=== PATIENT | male | born 1945 | race Caucasian/White ===

== ENCOUNTER 2017-08-04 07:24 | Observation (INO) | payer MEDICARE ==
[2017-08-04] MEDS ORDERED: BABY ASPIRIN 81 MG CHEW PO ONE (07:32)
[2017-08-04] MEDS ORDERED: NITRO-BID 2% UD PACKETS TOP ONE (07:32)
[2017-08-04] MEDS ORDERED: Sodium Chloride 0.9% 1000 ML 1,000 ML IV SCH (07:45)
--- NOTE | 2017-08-04 07:46 | ERPHSYRPT ---
- History of Present Illness Time Seen by Provider: 08/04/17 07:31 Historian: patient, family () Physician History: CC: chest heaviness Hx: 71 y/o patient of Dr Oconnor who lives most of the year in [place], planning to return to [place] soon. He has cardiology in [place] due to Afib and takes flecainide and ASA. He felt tired yesterday. Some nasal congestion. Could not sleep well last night. [place] chest heaviness and shortness of breath this AM and then felt like something sitting on his chest so came to ER. No hx of CAD in past. [place] a sharp pain in right upper leg this AM. No fever or chills. Not much cough but felt congested. Took 3 baby ASA this AM. No recent viagra or sexual medications. Does not take NTG routinely. Timing/Duration: today, yesterday Severity of Pain-Max: moderate Severity of Pain-Current: mild Aspirin Treatment Today: 81 mg x 3, provided at home Allergies/Adverse Reactions: No Known Drug Allergies Allergy (Unverified 08/04/17 07:47) Home Medications: Aspirin [[place] Aspirin] 81 mg PO DAILY 08/04/17 [History] Bisacodyl [Dulcolax] 5 mg PO DAILY 08/04/17 [History] Calcium Carbonate/Vitamin D3 [Calcium 600 + Vit D 400 Tablet] 1 each PO BID [History] Cyanocobalamin (Vitamin B-12) [Vitamin B12] 2,500 mcg PO DAILY 08/04/17 [History ] Flecainide Acetate 50 mg PO BID 08/04/17 [History] Naproxen 500 mg PO HS 08/04/17 [History] Omeprazole 20 MG [Prilosec 20 mg] 40 mg PO DAILY 08/04/17 [History] Potassium Chloride 20 Meq [Klor-Con 20 MEQ] 20 meq PO DAILY 08/04/17 [History] Vitamin B Complex [Super B Complex] 1 each PO DAILY 08/04/17 [History] - Review of Systems Constitutional: Malaise, Weakness, No Fever, No Chills Eyes: No Symptoms Ears, Nose, & Throat: No Symptoms Respiratory: Cough (mild), Dyspnea Cardiac: Chest Pain (heaviness) Abdominal/Gastrointestinal: Nausea, No Abdominal Pain, No Vomiting, No Diarrhea Genitourinary Symptoms: Incontinence (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 HTN - Social History Patient Lives Alone: No (here with ) - Nursing Vital Signs Nursing Vital Signs: Initial Vital Signs Temperature 97.8 F 08/04/17 07:25 Pulse Rate 98 H 08/04/17 07:25 Respiratory Rate 18 08/04/17 07:25 Blood Pressure 135/78 08/04/17 07:25 O2 Sat by Pulse Oximetry 96 08/04/17 07:25 Pain Scale Pain Intensity 2 - Physical Exam General Appearance: alert Eye Exam: PERRL/EOMI Ears, Nose, Throat Exam: normal ENT inspection, moist mucous membranes Neck Exam: normal inspection, non-tender, supple Respiratory Exam: normal breath sounds, lungs clear Cardiovascular Exam: regular rate/rhythm, No murmur Gastrointestinal/Abdomen Exam: soft, No tenderness, No distention Back Exam: normal inspection Extremity Exam: normal inspection Neurologic Exam: alert, oriented x 3, cooperative, sensation nml, No motor deficits Skin Exam: warm, dry, No rash Comments: 08/04/17 07:47 2+ femoral, radial, DP, PT pulses bilateral with no pulse deficit. Skin mildly clammy. - Course Nursing assessment & vital signs reviewed: Yes EKG Interpreted by Me: RATE (91), Sinus Rhythm, Left [place] Deviation, NORMAL INTERVALS (QTc 451), Other (Large R wave V2 on, nonspecific ST- T changes, LAFB) - Radiology Exams cxr X-ray Interpretation: Reviewed by me (CM, mild congestion, no consolidation), Nml Mediastinum Ordered Tests: Active Orders 24 hr Category Date Time Status Environmental Health And Safety Intern STAT Care 08/04/17 07:32 Active EKG-ER Only STAT Care 08/04/17 07:32 Active IV Insertion STAT Care 08/04/17 07:32 Active CHEST 1 VIEW (PORTABLE) Stat Exams 08/04/17 07:32 Taken CBC W DIFF Stat Lab 08/04/17 07:30 Completed CMP Stat Lab 08/04/17 07:30 Completed Manual Differential NC Stat Lab 08/04/17 07:30 Completed NT PRO BNP Stat Lab 08/04/17 07:30 Completed PROTIME WITH INR Stat Lab 08/04/17 07:30 Completed PTT Stat Lab 08/04/17 07:30 Completed TROPONIN Q3H Lab 08/04/17 07:30 Completed TROPONIN Q3H Lab 08/04/17 10:45 Ordered TROPONIN Q3H Lab 08/04/17 13:45 Ordered TROPONIN Q3H Lab 08/04/17 16:45 Ordered TROPONIN Q3H Lab 08/04/17 19:45 Ordered Respiratory Nebulizer STAT RT 08/04/17 08:40 Active Medication Summary Generic Name Dose Route Start Last Admin Trade Name Freq PRN Reason Stop Dose Admin Sodium Chloride 1,000 mls @ 100 mls/hr 08/04/17 07:45 08/04/17 07:59 Sodium Chloride 0.9% 1000 Ml IV 09/03/17 07:44 100 mls/hr .Q10H RENEE Administration Discontinued Medications Generic Name Dose Route Start Last Admin Trade Name Freq PRN Reason Stop Dose Admin Acetaminophen 650 mg 08/04/17 08:33 08/04/17 08:35 Tylenol 325 Mg PO 08/04/17 08:34 650 mg STAT ONE Administration Acetaminophen Confirm 08/04/17 08:34 Tylenol 325 Mg Administered 08/04/17 08:35 Dose 650 mg .ROUTE .STK-MED ONE Albuterol Sulfate 2.5 mg 08/04/17 08:40 Proventil 2.5 Mg/3 Ml Neb IH 08/04/17 08:41 STAT ONE Aspirin 81 mg 08/04/17 07:32 08/04/17 08:03 Baby Aspirin 81 Mg Chew PO 08/04/17 07:33 81 mg STAT ONE Administration Aspirin Confirm 08/04/17 07:57 Baby Aspirin 81 Mg Chew Administered 08/04/17 07:58 Dose 81 mg .ROUTE .STK-MED ONE Nitroglycerin 1 gm 08/04/17 07:32 08/04/17 07:59 Nitro-Bid 2% Ud Packets TOP 08/04/17 07:33 1 gm STAT ONE Administration Nitroglycerin Confirm 08/04/17 07:58 Nitro-Bid 2% Ud Packets Administered 08/04/17 07:59 Dose 1 gm .ROUTE .STK-MED ONE Lab/Rad Data: Laboratory Result Diagrams 08/04/17 07:30 08/04/17 07:30 Laboratory Results 08/04/17 08/04/17 08/04/17 Range/Units 07:30 07:30 07:30 WBC (4.0-10.5) K/mm3 RBC (4.1-5.6) M/mm3 Hgb (12.5-18.0) gm/dl Hct (42-50) % MCV (78-100) fl MCH (26-32) pg MCHC (32-36) g/dl RDW (11.5-14.0) % Plt Count (150-450) K/mm3 MPV (6-9.5) fl Segmented Neutrophils (36.-66.) % Band Neutrophils (0.0-2.0) % Lymphocytes (Manual) (24-44) % Monocytes (Manual) (0.0-12.0) % Eosinophils (Manual) (0.00-3.0) % Differential Comment Platelet Estimate (NORMAL) INR 1.04 (0.8-3.0) APTT 33.8 (24.1-36.1) SECONDS Sodium 142 (136-145) mEq/L Potassium 3.9 (3.5-5.1) mEq/L Chloride 108 H (98-107) mEq/L Carbon Dioxide 22.0 (21-32) mEq/L Anion Gap 15.8 H (5-15) MEQ/L BUN 22 H (9-20) mg/dL Creatinine 1.04 (0.55-1.30) mg/dl Estimated GFR > 60 ML/MIN Glucose 140 H (70-110) MG/DL Calcium 8.6 (8.5-10.1) mg/dL Total Bilirubin 1.00 (0.2-1.0) mg/dL AST 28 (15-37) U/L ALT 58 (12-78) U/L Alkaline Phosphatase 90 (46-116) U/L Troponin I < 0.017 (0.000-0.056) ng/ml NT-Pro-B Natriuret Pep 121 (0-125) pg/ml Serum Total Protein 6.8 (6.4-8.2) gm/dL Albumin 3.8 (3.4-5.0) g/dL 08/04/17 Range/Units 07:30 WBC 7.9 (4.0-10.5) K/mm3 RBC 5.86 H (4.1-5.6) M/mm3 Hgb 18.2 H (12.5-18.0) gm/dl Hct 51.8 H (42-50) % MCV 88.4 (78-100) fl MCH 31.0 (26-32) pg MCHC 35.1 (32-36) g/dl RDW 14.1 H (11.5-14.0) % Plt Count 201 (150-450) K/mm3 MPV 11.7 H (6-9.5) fl Segmented Neutrophils 90 H (36.-66.) % Band Neutrophils 4 H (0.0-2.0) % Lymphocytes (Manual) 4 L (24-44) % Monocytes (Manual) 1 (0.0-12.0) % Eosinophils (Manual) 1 (0.00-3.0) % Differential Comment NORMAL Platelet Estimate NORMAL (NORMAL) INR (0.8-3.0) APTT (24.1-36.1) SECONDS Sodium (136-145) mEq/L Potassium (3.5-5.1) mEq/L Chloride (98-107) mEq/L Carbon Dioxide (21-32) mEq/L Anion Gap (5-15) MEQ/L BUN (9-20) mg/dL Creatinine (0.55-1.30) mg/dl Estimated GFR ML/MIN Glucose (70-110) MG/DL Calcium (8.5-10.1) mg/dL Total Bilirubin (0.2-1.0) mg/dL AST (15-37) U/L ALT (12-78) U/L Alkaline Phosphatase (46-116) U/L Troponin I (0.000-0.056) ng/ml NT-Pro-B Natriuret Pep (0-125) pg/ml Serum Total Protein (6.4-8.2) gm/dL Albumin (3.4-5.0) g/dL - Progress Progress Note: 08/04/17 08:43 Chest heaviness improved with NTG paste. PE or TAD not suspected. He has normal pulses. Advised chest pain observation to rule out NE. Called Dr Mata who will place in Tele. Discussed with .: Esperanza Will see patient in: hospital (observation) Counseled pt/family regarding: lab results, diagnosis, need for follow-up, rad results - Departure Time of Disposition: 08:43 Departure Disposition: Observation (Tele) Clinical Impression: Chest pain, rule out acute myocardial infarction, History of atrial fibrillation Condition: Fair Critical Care Time: No Referrals: TAWANA OCONNOR MD [Primary Care Provider] -
[2017-08-04 07:53] LABS: Mean Cell Volume 88.4 fl (78-100); Mean Platelet Volume 11.7 fl (6-9.5); Platelet Count 201 K/mm3 (150-450); Red Blood Count 5.86 M/mm3 (4.1-5.6); Red Cell Distribution Width 14.1 % (11.5-14.0); White Blood Count 7.9 K/mm3 (4.0-10.5)
[2017-08-04] MEDS ORDERED: BABY ASPIRIN 81 MG CHEW ONE (07:57)
[2017-08-04] MEDS ORDERED: NITRO-BID 2% UD PACKETS ONE (07:58)
[2017-08-04 08:07] LABS: INR 1.04 (0.8-3.0); PROTIME 11.6 SECONDS (8.83-12.87)
[2017-08-04 08:09] LABS: PTT 33.8 SECONDS (24.1-36.1)
[2017-08-04 08:16] LABS: BAND 4 % (0.0-2.0); Eosinophil 1 % (0.00-3.0); Total Cells Counted 100
[2017-08-04 08:19] LABS: ALBUMIN 3.8 g/dL (3.4-5.0); ALKALINE PHOSPHATASE 90 U/L (46-116); ANION GAP 15.8 MEQ/L (5-15); BLOOD UREA NITROGEN 22 mg/dL (9-20); CHLORIDE 108 mEq/L (98-107); Glucose 140 MG/DL (70-110); Potassium 3.9 mEq/L (3.5-5.1); SGOT/AST 28 U/L (15-37); SGPT/ALT 58 U/L (12-78); SODIUM 142 mEq/L (136-145); Total Protein 6.8 gm/dL (6.4-8.2)
[2017-08-04 08:21] LABS: Platelet Estimate NORMAL (NORMAL)
[2017-08-04] MEDS ORDERED: TYLENOL 325 MG PO ONE (08:33)
[2017-08-04] MEDS ORDERED: TYLENOL 325 MG ONE (08:34)
[2017-08-04] MEDS ORDERED: PROVENTIL 2.5 MG/3 ML NEB IH ONE ×2 (08:40→08:48)
[2017-08-04] MEDS ORDERED: MILK OF MAGNESIA 30 ML PO PRN (09:25)
[2017-08-04] MEDS ORDERED: Sodium Chloride 0.9% 500 ML 500 ML IV SCH (09:25)
[2017-08-04] MEDS ORDERED: MAALOX ES 30 ML UNIT DOSE PO PRN (09:25)
[2017-08-04] MEDS ORDERED: Senokot-S Tablet PO PRN (09:25)
[2017-08-04] MEDS ORDERED: Zofran 4 MG/2 ML VIAL IV PRN (09:25)
--- NOTE | 2017-08-04 10:12 | PCM.SSS ---
History of Present Illness - Chief Complaint Chief Complaint: Shortness of Breath History of Present Illness: is a 71 year old male [facility] complaining of 5/10 chest pressure, some radiation to R shoulder, with SOB, diaphoresis, and tachycardia to 100. His BP was 150s systolic (usually he runs 120s systolic). His EKG was not acute and troponin neg, but he was admitted for CP r/o MO. His pain resolved after an hour and with nitro paste. He had eaten catfish last night and started feeling nauseated an hour or so later. He did not sleep well, had indigestion and nasal congestion. He felt he couldn't breathe well even with his CPAP on. Currently he denies chest pain. He has a long smoking hx; quit over 10 yrs ago but had a 35+ pk year hx. He has hx afib and is on flecanide. No hx CAD. MGF had MO, otherwise no FHx CAD. - Review of Systems Respiratory: Short Of Breath Cardiac: Chest Pain, Edema (had few days of LLE edema), Palpitations Abdominal/Gastrointestinal: Nausea, Constipation (chronic) Musculoskeletal: Myalgias (and loss of muscle mass RLE, has been seeing Dr. Oconnor with extensive workup), Other (last night had a very brief episode of pain medial proximal R thigh, "like a mouse ran down my vein and then out.") Psychological: No Depression, No Suicidal Ideations Medications & Allergies Home Medications: Home Medication List Aspirin [[place] Aspirin] 81 mg PO DAILY 08/04/17 [History Confirmed 08/04/17 ] Bisacodyl [Dulcolax] 5 mg PO DAILY 08/04/17 [History Confirmed 08/04/17] Calcium Carbonate/Vitamin D3 [Calcium 600 + Vit D 400 Tablet] 1 each PO BID [History Confirmed 08/04/17] Cyanocobalamin (Vitamin B-12) [Vitamin B12] 2,500 mcg PO DAILY 08/04/17 [ History Confirmed 08/04/17] Flecainide Acetate 100 mg PO BID 08/04/17 [History Confirmed 08/04/17] Naproxen 500 mg PO DAILY 08/04/17 [History Confirmed 08/04/17] Omeprazole 20 MG [Prilosec 20 mg] 40 mg PO DAILY 08/04/17 [History Confirmed ] Potassium Chloride 10 Meq Tab* [Klor Con 10 MEQ] 10 meq PO DAILY 08/04/17 [ History Confirmed 08/04/17] Simvastatin 40 mg [Zocor 40 mg] 20 mg PO HS 08/04/17 [History Confirmed 08/04/17 ] Vitamin B Complex [Super B Complex] 1 each PO DAILY 08/04/17 [History Confirmed 08/04/17] Allergies/Adverse Reactions: Allergies Allergy/AdvReac Type Severity Reaction Status Date / Time No Known Drug Allergies Allergy Verified 08/04/17 09:46 - Past Medical History Past Medical History: Yes Cardiac History: Arrhythmia (Afib) Respiratory History: Sleep Apnea Male Reproductive Disorders: Prostate Cancer Comment: Prostate CA. HTN - Past Surgical History Past Surgical History: Yes GI Surgical History: Appendectomy, Hernia Repair Genitourinary Surgical Hx: Other Male Surgical History: Prostate Surgery Other Surgical History: bladder sling - Social History Smoking Status: Former smoker Exposure to second hand smoke: No Alcohol: Daily Drug Use: none - Physical Exam Vital Signs: Vital Signs - 24 hr Temp Pulse Pulse Resp BP Pulse Ox 08/04/17 08:55 104 H 18 94 L 08/04/17 08:37 105 H 18 111/64 94 L 08/04/17 07:28 98 H 08/04/17 07:25 97.8 F 98 H 18 135/78 96 General Appearance: no apparent distress, alert Neurologic Exam: oriented x 3, cooperative Eye Exam: eyes nml inspection Ears, Nose, Throat Exam: moist mucous membranes Neck Exam: normal inspection, supple, full range of motion Respiratory Exam: normal breath sounds, lungs clear, No crackles/rales, No rhonchi, No wheezing Cardiovascular Exam: regular rate/rhythm, normal heart sounds, No murmur Gastrointestinal/Abdomen Exam: soft, normal bowel sounds, No tenderness, No distention, No mass, No guarding, No rebound Back Exam: normal inspection Extremity Exam: No pedal edema, No swelling Skin Exam: normal color, warm, dry Assessment/Plan (1) Chest pain, rule out acute myocardial infarction Current Visit: Yes Status: Acute Assessment & Plan: If troponins negative today and vital signs are stable, he may be able to be discharged this evening. He does appear to have a LBBB; will need to f/u with PCP and/or cardiology in [place]. Code(s): R07.9 - CHEST PAIN, UNSPECIFIED (2) History of atrial fibrillation Current Visit: Yes Status: Chronic Assessment & Plan: currently appears to be in sinus rhythm. Code(s): Z86.79 - PERSONAL HISTORY OF OTHER DISEASES OF THE CIRCULATORY SYSTEM Hospital Summary - Vitals & Intake/Output Vital Signs: Vital Signs Temperature 97.8 F 08/04/17 07:25 Pulse Rate 104 H 08/04/17 08:55 Respiratory Rate 18 08/04/17 08:55 Blood Pressure 111/64 08/04/17 08:37 O2 Sat by Pulse Oximetry 94 L 08/04/17 08:55 - Lab Result Diagrams: 08/04/17 07:30 08/04/17 07:30 - Discharge Disposition: Home, Self-Care Condition: Fair Prescriptions: No Action Naproxen 500 mg PO DAILY Bisacodyl [Dulcolax] 5 mg PO DAILY Calcium Carbonate/Vitamin D3 [Calcium 600 + Vit D 400 Tablet] 1 each PO BID Vitamin B Complex [Super B Complex] 1 each PO DAILY Omeprazole 20 MG [Prilosec 20 mg] 40 mg PO DAILY Cyanocobalamin (Vitamin B-12) [Vitamin B12] 2,500 mcg PO DAILY Aspirin [[place] Aspirin] 81 mg PO DAILY Simvastatin 40 mg [Zocor 40 mg] 20 mg PO HS Flecainide Acetate 100 mg PO BID Potassium Chloride 10 Meq Tab* [Klor Con 10 MEQ] 10 meq PO DAILY Follow up with: TAWANA OCONNOR MD [Primary Care Provider] -
[2017-08-04] MEDS ORDERED: NAPROXEN 500 MG PO PRN (11:45)
[2017-08-04] MEDS ORDERED: Naprosyn 500 MG PO PRN (11:50)
[2017-08-04] MEDS: FLECAINIDE ACETATE PO SCH ×2 (12:03→21:00)
[2017-08-04] MEDS: Pepcid 20 MG PO SCH ×2 (12:13→20:59)
[2017-08-04] MEDS: Protonix 40MG Tablet PO SCH (12:13)
[2017-08-04] MEDS: DULCOLAX 5 MG PO SCH (12:14)
[2017-08-04] MEDS: NITRO-BID 2% UD PACKETS TOP SCH ×2 (13:37→21:00)
[2017-08-04] MEDS: TYLENOL 325 MG PO PRN (16:33)
--- NOTE | 2017-08-04 20:18 | XRAY ---
Indication: Chest pain. Comparison: None Portable chest clear with incidental calcified granulomas. Heart is not enlarged for AP portable technique. Bony thorax intact with mild degenerative changes. Impression: Nonacute chest. Evidence for old granulomatous disease. Comment: Preliminary interpretation was made by C. No discrepancy.
[2017-08-04] MEDS ORDERED: ZOCOR 20MG PO SCH (22:00)
[2017-08-04] MEDS ORDERED: NON-FORMULARY ITEM (Simvastatin 40 Mg [Zocor 40 Mg] 20 MG) PO SCH (22:00)
[2017-08-05] MEDS: NITRO-BID 2% UD PACKETS TOP SCH (05:59)
[2017-08-05] MEDS: TYLENOL 325 MG PO PRN (06:04)
[2017-08-05] MEDS: Protonix 40MG Tablet PO SCH (08:53)
[2017-08-05] MEDS: DULCOLAX 5 MG PO SCH (08:54)
[2017-08-05] MEDS: FLECAINIDE ACETATE PO SCH (08:54)
[2017-08-05] MEDS: Pepcid 20 MG PO SCH (08:54)
[2017-08-05] MEDS ORDERED: Ecotrin 325 MG PO SCH (10:00)
[2017-08-05] MEDS ORDERED: NON-FORMULARY ITEM (Omeprazole 20 Mg [Prilosec 20 Mg] 40 MG) PO SCH (10:00)
[2017-08-05] MEDS ORDERED: ECOTRIN 81 MG PO SCH (10:00)
[2017-08-05] MEDS ORDERED: Klor Con 10 MEQ PO SCH (10:00)
--- NOTE | 2017-08-05 11:58 | PCM.DS ---
Discharge Summary Date of Admission: 08/04/17 09:12 Admitting Physician: TAWANA OCONNOR Primary Care Provider: TAWANA OCONNOR Allergies Allergies No Known Drug Allergies Allergy (Verified 08/04/17 09:46) Hospital Summary - Hospital Course Hospital Course: Pt admitted through ER with chest pressure and SOB. He ruled out for MT. Last night he started having diarrhea and has had several episodes this morning. C/ o some abdominal bloating, not having any chest pain. Will be discharged to home. Will f/u wiht his manager managed backup services when he gets home. - Vitals & Intake/Output Vital Signs: Vital Signs Temperature 98.2 F 08/05/17 08:00 Pulse Rate 67 08/05/17 08:00 Respiratory Rate 12 08/05/17 08:00 Blood Pressure 110/68 08/05/17 08:00 O2 Sat by Pulse Oximetry 94 L 08/05/17 08:00 Intake & Output: Intake & Output 08/02/17 08/03/17 08/04/17 08/05/17 11:59 11:59 11:59 11:59 Intake Total 1217 Balance 1217 Weight 94.6 kg - Lab Result Diagrams: 08/04/17 07:30 08/04/17 07:30 Lab Results-Last 24 Hrs: Lab Results-Last 24 Hours 08/04/17 08/04/17 08/04/17 Range/Units 13:40 16:50 19:40 Troponin I < 0.017 < 0.017 < 0.017 (0.000-0.056) ng/ml Triglycerides (30-200) mg/dL Cholesterol (100-200) mg/dL LDL Cholesterol (5-99) mg/dL HDL Cholesterol (35-60) mg/dL Heart Disease Risk Ratio 08/05/17 Range/Units 05:10 Troponin I (0.000-0.056) ng/ml Triglycerides 95 (30-200) mg/dL Cholesterol 101 (100-200) mg/dL LDL Cholesterol 62 (5-99) mg/dL HDL Cholesterol 33 L (35-60) mg/dL Heart Disease Risk Ratio 3.1 - Procedures and Test Procedures and Tests throughout Hospitalization: Therapy Orders & Screens 08/04/17 15:27 EKG ROUTINE Comment: Diagnosis: Shortness of Breath 08/05/17 05:00 EKG ONCE Comment: Diagnosis: Shortness of Breath 08/06/17 05:00 EKG ONCE Comment: Diagnosis: Shortness of Breath 08/07/17 05:00 EKG ONCE Comment: Diagnosis: Shortness of Breath Discharge Exam General Appearance: no apparent distress, alert Neurologic Exam: oriented x 3, cooperative Skin Exam: normal color, warm, dry Respiratory Exam: normal breath sounds, lungs clear, No crackles/rales, No rhonchi, No wheezing Cardiovascular Exam: regular rate/rhythm, normal heart sounds, No murmur Gastrointestinal/Abdomen Exam: soft, normal bowel sounds, distention (mildly), No tenderness, No mass, No guarding, No rebound Extremity Exam: No pedal edema, No swelling Final Diagnosis/Problem List - Final Discharge Diagnosis/Problem (1) Chest pain, rule out acute myocardial infarction Current Visit: Yes Status: Acute Assessment & Plan: MT ruled out. He did have some EKG changes suggesting LBBB, unsure if these were pre-existing. His HDL was low, otherwise lipid panel was good. He is to f/ u with manager managed backup services in [place] when he returns home (has appt scheduled next month, but I instructed him to call as soon as he reached home and get a sooner appointment). (2) Gastroenteritis Current Visit: Yes Status: Acute Assessment & Plan: likely, with abd pain followed by diarrhea. If diarrhea continues he will call Dr. Oconnor for an order for C. diff testing. (3) History of atrial fibrillation Current Visit: Yes Status: Chronic Assessment & Plan: in sinus rhythm here - Discharge Disposition: Home, Self-Care Condition: Fair Prescriptions: No Action Naproxen 500 mg PO DAILY Bisacodyl [Dulcolax] 5 mg PO DAILY Calcium Carbonate/Vitamin D3 [Calcium 600 + Vit D 400 Tablet] 1 each PO BID Vitamin B Complex [Super B Complex] 1 each PO DAILY Omeprazole 20 MG [Prilosec 20 mg] 40 mg PO DAILY Cyanocobalamin (Vitamin B-12) [Vitamin B12] 2,500 mcg PO DAILY Aspirin [[place] Aspirin] 81 mg PO DAILY Simvastatin 40 mg [Zocor 40 mg] 20 mg PO HS Flecainide Acetate 100 mg PO BID Potassium Chloride 10 Meq Tab* [Klor Con 10 MEQ] 10 meq PO DAILY Instructions: Atypical Chest Pain Follow up with: TAWANA OCONNOR MD [Primary Care Provider] - Forms: Discharge Instructions
[2017-08-05 12:18] VITALS: BP 140/73; PULSE 64; O2SAT 96
== END 2017-08-05 12:10 | disposition home or self-care (01) ==
LOC: ED 07:24 → ICU 09:12
PROVIDERS: ADMIT Family Medicine; ATTEND Family Medicine
DX: R07.89 Other chest pain (principal); K52.9 Noninfective gastroenteritis and colitis, unspecified; Z86.79 Personal history of other diseases of the circulatory system; G47.30 Sleep apnea, unspecified; I10 Essential (primary) hypertension; Z79.899 Other long term (current) drug therapy; Z87.891 Personal history of nicotine dependence; Z85.46 Personal history of malignant neoplasm of prostate
CPT/HCPCS: 36000; 36415; 71010; 80053; 80061; 83721; 83880; 84484; 85025; 85610; 85730; 93005; 93041; 94640; 96360; 99285; G0378; J2405; A9270-GY

== ENCOUNTER 2022-06-18 14:44 | Emergency (ER) | payer MEDICARE ==
[2022-06-18 15:05] VITALS: O2SAT 96
[2022-06-18 15:29] LABS: Appearance CLOUDY (CLEAR); Bilirubin NEGATIVE (NEGATIVE); Dipstick done @ ? MAIN LAB; Glucose NEGATIVE (NEGATIVE); Ketones NEGATIVE (NEGATIVE); Nitrite POSITIVE (NEGATIVE); Ph 8.5 (5-6); Protein,Urine Dip 100 (Negative); RBC LARGE Ery/ul (0-5); Specific Gravity 1.015 (1.005-1.025); Urobilinogen 0.2 mg/dL (0-1)
--- NOTE | 2022-06-18 15:31 | ERPHSYRPT ---
- History of Present Illness Time Seen by Provider: 06/18/22 14:48 Source: patient Exam Limitations: no limitations Patient Subjective Stated Complaint: C/O inability to urinate. Patient was last able to void fully and normally around noon yesterday. 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 Triage Nursing Assessment: Patient ambulated back to ED without difficulties. He is alert and oriented. No SOB noted. Patient is warm to touch. MD present to examine scrotum where pump for artificial spincter is present. Physician History: 76-year-old male with history of prostate cancer status post resection with loss of's sphincter and incontinence for which he has Superfeedr 800 urinary control system implanted at [place] presented in the ER with inability to urinate. Patient reports usually he is able to operate system very well and is able to go but since yesterday having slow dribbling and having some pain in the suprapubic are a because of urinary retention. He is afraid of drinking water. Does report having similar symptoms 1 time before when system was deactivated and Syed catheter was placed. Timing/Duration: yesterday, gradual onset, worse Severity: moderate Associated Symptoms: abdominal pain Allergies/Adverse Reactions: No Known Drug Allergies Allergy (Verified 06/18/22 14:50) Home Medications: Aspirin [[place] Aspirin EC] 81 mg PO DAILY 08/04/17 [History] Bisacodyl [Dulcolax] 5 mg PO DAILY 08/04/17 [History] Calcium Carbonate/Vitamin D3 [Calcium 600-Vit D3 400 Tablet] 1 each PO BID 08/04/17 [History] Cyanocobalamin (Vitamin B-12) [Vitamin B12] 2,500 mcg PO DAILY 08/04/17 [History] Flecainide Acetate 100 mg PO BID 08/04/17 [History] Naproxen 500 mg PO DAILY 08/04/17 [History] Omeprazole 20 MG [Prilosec 20 mg] 40 mg PO DAILY 08/04/17 [History] Potassium Chloride Tab* [Klor Con] 10 meq PO DAILY 08/04/17 [History] Simvastatin 40 mg [Zocor 40 mg] 20 mg PO HS 08/04/17 [History] Vitamin B Complex [Super B Complex] 1 each PO DAILY 08/04/17 [History] Hx Tetanus, Diphtheria Vaccination/Date Given: Yes Hx Influenza Vaccination/Date Given: Yes Hx Pneumococcal Vaccination/Date Given: Yes Immunizations Up to Date: Yes Travel Risk - International Travel Have you traveled outside of the country in past 3 weeks: No - Coronavirus Screening Are you exhibiting any of the following symptoms?: No Close contact with a COVID-19 positive Pt in past 14-21 Days: No - Vaccine Status Have you recieved a Covid-19 vaccination: Yes Circulating Process Inspector: Moderna - Vaccination Dates Date of 2cond Vaccination (if applicable): 2020 - Review of Systems Constitutional: No Symptoms Respiratory: No Symptoms Cardiac: No Symptoms Abdominal/Gastrointestinal: Abdominal Pain Genitourinary Symptoms: Urinary Retention Musculoskeletal: No Symptoms Skin: No Symptoms Neurological: No Symptoms Psychological: No Symptoms Endocrine: No Symptoms - Past Medical History Pertinent Past Medical History: Yes Neurological History: No Pertinent History ENT History: No Pertinent History Cardiac History: Arrhythmia, Hypertension Respiratory History: Sleep Apnea Endocrine Medical History: No Pertinent History Musculoskeletal History: Arthritis GI Medical History: GERD, Hemorrhoids Psycho-Social History: No Pertinent History Male Reproductive Disorders: Prostate Cancer Other Medical History: CDIFF - Past Surgical History Past Surgical History: Yes Neuro Surgical History: No Pertinent History Cardiac: No Pertinent History Respiratory: No Pertinent History Gastrointestinal: Appendectomy, Hernia Repair Genitourinary: Other Musculoskeletal: No Pertinent History Male Surgical History: Prostate Surgery, Other Other Surgical History: bladder sling, artificial spincter in scrotum, biopsy on right leg due to shrinking lef muscle. - Social History Smoking Status: Former smoker How long have you smoked: 35 years Exposure to second hand smoke: No Drug Use: none Patient Lives Alone: No - Nursing Vital Signs Nursing Vital Signs: Initial Vital Signs Temperature 99 F 06/18/22 14:51 Pulse Rate 119 H 06/18/22 14:51 Respiratory Rate 22 06/18/22 14:51 Blood Pressure 156/97 06/18/22 14:51 O2 Sat by Pulse Oximetry 96 06/18/22 14:51 Pain Scale Pain Intensity 0 - Physical Exam General Appearance: no apparent distress, alert Neck Exam: normal inspection, full range of motion Respiratory Exam: normal breath sounds, lungs clear Cardiovascular Exam: normal heart sounds, tachycardia Gastrointestinal/Abdomen Exam: soft, normal bowel sounds, tenderness (Suprapubic tenderness) Male Genitalia Exam: normal genitalia, other (Implant in scrotum), No testicular mass Back Exam: normal inspection, normal range of motion, No CVA tenderness Extremity Exam: normal inspection Neurologic Exam: alert, oriented x 3, cooperative, information services assistant II-XII nml as tested Skin Exam: normal color SpO2 Interpretation: normal SpO2: 96 O2 Delivery: Room Air Ordered Tests: Active Orders 24 hr Category Date Time Status CULTURE,URINE Stat Lab 06/18/22 15:18 Received UA W/RFX CULTURE Stat Lab 06/18/22 15:18 Completed Medication Summary Discontinued Medications Generic Name Dose Route Start Last Admin Trade Name Eddy PRN Reason Stop Dose Admin Ceftriaxone Sodium 1,000 mg 06/18/22 16:14 06/18/22 16:35 Ceftriaxone Sodium 1000 Mg Inj Vial IM 06/18/22 16:15 1,000 mg STAT ONE Administration Ceftriaxone Sodium Confirm 06/18/22 16:33 Ceftriaxone Sodium 1000 Mg Inj Vial Administered 06/18/22 16:34 Dose 1,000 mg .ROUTE .STK-MED ONE Lidocaine HCl Confirm 06/18/22 16:33 Lidocaine Hcl 1% 20 Ml Mdv 20 Ml Ml Administered 06/18/22 16:34 Dose 3 ml .ROUTE .STK-MED ONE Lab/Rad Data: Laboratory Results 06/18/22 Range/Units 15:18 Urinalys Dipstick Clnc MAIN LAB Urine Color DARK YELLOW (YELLOW) Urine Appearance CLOUDY (CLEAR) Urine pH 8.5 (5-6) Ur Specific [place] 1.015 (1.005-1.025) POC Urine Protein Conf 100 (Negative) Urine Ketones NEGATIVE (NEGATIVE) Urine Nitrite POSITIVE (NEGATIVE) Urine Bilirubin NEGATIVE (NEGATIVE) Urine Urobilinogen 0.2 (0-1) mg/dL Urine Leukocytes LARGE (NEGATIVE) Urine WBC (Auto) >100 (0-5) /HPF Urine RBC (Auto) 26-50 (0-2) /HPF U Epithel Cells (Auto) NONE (FEW) /HPF Urine Bacteria (Auto) RARE (NEGATIVE) /HPF Urine RBC LARGE (0-5) Tc/ul Ur Culture Indicated? YES Urine Glucose NEGATIVE (NEGATIVE) mg/dL - Progress Progress: improved Progress Note: 06/18/22 15:21 EM 800 urinary control system is deactivated, Syed catheter is placed and with almost 500 cloudy urine. Urinalysis is ordered. Patient feels much relieved. 06/18/22 16:40 Patient does have UTI, given a dose of IM Rocephin and started on Keflex. I have tried to get hold of urology Juliet Gould, paged them twice but no answer. Is given the number for Dr. Olmedo urology is to call and see if he can do some help with this device. Otherwise he would have to follow-up with his urologist. Patient is okay with the plan. Counseled pt/family regarding: lab results, diagnosis, need for follow-up - Departure Departure Disposition: Home Clinical Impression: Acute UTI, Urinary retention Condition: Stable Critical Care Time: No Referrals: TAWANA OCONNOR MD [Primary Care Provider] - Follow up/PCP as directed (1-2 days for reevaluation) IRON OLMEDO [COURTESY STAFF] - Follow up/PCP as directed (Call tomorrow for appointment for reevaluation) Instructions: Urinary Retention (DC) Additional Instructions: Take Tylenol as needed for pain. Drink plenty of fluids. Follow-up with urology for reevaluation next week. Return to ER if having difficulty urination, fever chills, flank pain, intractable vomiting etc. Prescriptions: Cephalexin Mh 500 mg [Keflex 500 mg] 500 mg PO TID #21 cap
[2022-06-18 15:55] LABS: Bacteria RARE /HPF (NEGATIVE); RBC 26-50 /HPF (0-2); WBC >100 /HPF (0-5)
[2022-06-18 16:12] LABS: Urine Cultured Indicated? YES
[2022-06-18] MEDS ORDERED: Rocephin 1000 MG INJ IM ONE (16:14)
[2022-06-18] MEDS ORDERED: Rocephin 1000 MG INJ ONE (16:33)
[2022-06-18] MEDS ORDERED: XYLOCAINE 1% HCL 20 ML MDV ONE (16:33)
[2022-06-18 16:55] VITALS: BP 160/70; PULSE 86
== END 2022-06-18 16:55 | disposition home or self-care (01) ==
LOC: ED 14:44
DX: N39.0 Urinary tract infection, site not specified (principal); R33.9 Retention of urine, unspecified; T83.111A Breakdown (mechanical) of implanted urinary sphincter, initial encounter; I10 Essential (primary) hypertension; Z79.899 Other long term (current) drug therapy
CPT/HCPCS: 81015; 87077; 87086; 87186; 96372; 99283; J0696

== ENCOUNTER 2024-03-17 07:23 | Emergency (ER) | payer MEDICARE ==
--- NOTE | 2024-03-17 07:27 | ERPHSYRPT ---
- History of Present Illness Time Seen by Provider: 03/17/24 07:27 Source: patient, family Exam Limitations: no limitations Physician History: This is a 78-year-old white male patient who fell 4 days ago. The greatest amount of impact was to his right lateral upper thigh. He slightly hit his head. There was no loss of consciousness. He has no headache and he has no neck pain. Patient is on anticoagulation therapy. Patient has a history of hyperlipidemia, gastroesophageal reflux disease, arrhythmias, hypertension, prostate cancer and sleep apnea. He denies chest pain, denies shortness of breath, denies abdominal pain. Today he noticed bruising in the area of impact on his lateral right upper thigh. He has been able to ambulate but does note some discomfort Method of Injury: fell Occurred: days ago (4) Quality: aching Severity of Pain-Max: mild Severity of Pain-Current: mild Lower Extremities Pain: hip: right (Lateral), thigh: right (Upper, lateral) Modifying Factors: Improves With: movement Associated Symptoms: none Allergies/Adverse Reactions: No Known Drug Allergies Allergy (Verified 03/17/24 08:00) Home Medications: Aspirin [[place] Aspirin EC] 81 mg PO DAILY 08/04/17 [History] Bisacodyl [Dulcolax] 5 mg PO DAILY 08/04/17 [History] Calcium Carbonate/Vitamin D3 [Calcium 600-Vit D3 400 Tablet] 1 each PO BID 08/04/17 [History] Cyanocobalamin (Vitamin B-12) [Vitamin B12] 2,500 mcg PO DAILY 08/04/17 [History] Flecainide Acetate 100 mg PO BID 08/04/17 [History] Naproxen 500 mg PO DAILY 08/04/17 [History] Omeprazole 20 MG [Prilosec 20 mg] 40 mg PO DAILY 08/04/17 [History] Potassium Chloride Tab* [Klor Con] 10 meq PO DAILY 08/04/17 [History] Simvastatin 40 mg [Zocor 40 mg] 20 mg PO HS 08/04/17 [History] Vitamin B Complex [Super B Complex] 1 each PO DAILY 08/04/17 [History] Hx Tetanus, Diphtheria Vaccination/Date Given: Yes Hx Influenza Vaccination/Date Given: Yes Hx Pneumococcal Vaccination/Date Given: Yes Travel Risk - International Travel Have you traveled outside of the country in past 3 weeks: No - Emerging Infectious Disease Are you exhibiting symptoms associated with any current EIDs: No - Review of Systems Constitutional: No Symptoms Eyes: No Symptoms Ears, Nose, & Throat: No Symptoms Respiratory: No Symptoms Cardiac: No Symptoms Abdominal/Gastrointestinal: No Symptoms Genitourinary Symptoms: No Symptoms Musculoskeletal: Fall, Injury (Right lateral upper thigh) Skin: No Symptoms Neurological: No Symptoms Psychological: No Symptoms Endocrine: No Symptoms Hematologic/Lymphatic: No Symptoms Immunological/Allergic: No Symptoms All Other Systems: Reviewed and Negative - Past Medical History Pertinent Past Medical History: Yes Neurological History: No Pertinent History ENT History: No Pertinent History Cardiac History: Arrhythmia, Hypertension Respiratory History: Sleep Apnea Endocrine Medical History: No Pertinent History Musculoskeletal History: Arthritis GI Medical History: GERD, Hemorrhoids Psycho-Social History: No Pertinent History Male Reproductive Disorders: Prostate Cancer Other Medical History: CDIFF - Past Surgical History Past Surgical History: Yes Neuro Surgical History: No Pertinent History Cardiac: No Pertinent History Respiratory: No Pertinent History Gastrointestinal: Appendectomy, Hernia Repair Genitourinary: Other Musculoskeletal: No Pertinent History Male Surgical History: Prostate Surgery, Other Other Surgical History: bladder sling, artificial spincter in scrotum, biopsy on right leg due to shrinking lef muscle. - Social History Smoking Status: Former smoker How long have you smoked: 35 years Exposure to second hand smoke: No Drug Use: none Patient Lives Alone: No - Nursing Vital Signs Nursing Vital Signs: Initial Vital Signs Temperature 98 F 03/17/24 07:37 Pulse Rate 60 03/17/24 07:37 Respiratory Rate 16 03/17/24 07:37 Blood Pressure 142/73 03/17/24 07:37 O2 Sat by Pulse Oximetry 93 L 03/17/24 07:37 Pain Scale Pain Intensity 4 - Physical Exam General Appearance: no apparent distress, alert, anxiety Eyes, Ears, Nose, Throat Exam: normal ENT inspection, moist mucous membranes Neck Exam: normal inspection, non-tender, supple, full range of motion Cardiovascular/Respiratory Exam: chest non-tender, no respiratory distress Gastrointestinal/Abdominal Exam: non-tender Back Exam: normal inspection, normal range of motion, vertebral tenderness, No CVA tenderness Hips Exam: right: normal range of motion, ecchymosis (Right lateral upper, mild), soft tissue tenderness (Right lateral upper, mild) Legs Exam: bilateral leg: non-tender, normal inspection, normal range of motion, no evidence of injury Knees Exam: bilateral knee: non-tender, normal inspection, normal range of motion, no evidence of injury Ankle Exam: bilateral ankle: non-tender, normal inspection, normal range of motion, no evidence of injury Foot Exam: bilateral foot: non-tender, normal inspection, normal range of motion, no evidence of injury Neuro/Tendon Exam: normal sensation, normal motor functions, normal tendon functions, responds to pain, no evidence tendon injury Mental Status Exam: alert, oriented x 3, cooperative Skin Exam: ecchymosis (Right upper, lateral thigh) SpO2 Interpretation: normal O2 Delivery: Room Air - Course Nursing assessment & vital signs reviewed: Yes Ordered Tests: Active Orders 24 hr Category Date Time Status FEMUR Stat Exams 03/17/24 07:46 Taken HEAD WITHOUT CONTRAST [CT] Stat Exams 03/17/24 07:45 Completed HIP UNI (2V) INCL PEL IF DONE Stat Exams 03/17/24 07:46 Taken - Progress Progress: unchanged Progress Note: 03/17/24 07:52 My medical decision making and the assignment of low to moderate complexity of this patient's medical issue today is based on review of the patient's past medical history, review the patient's medication list, review of the patient's drug allergy list, history of present illness and physical findings on examination. The workup in this patient includes CT scan of head without contrast, x-ray of right hip and pelvis, x-ray of right femur. Differential diagnosis includes subcutaneous hematoma, right hip fracture/dislocation, right hip contusion, femur fracture, right femur contusion 03/17/24 08:45 I interpreted the preliminary report on the patient's right hip x-ray. There is no evidence of any acute fracture or dislocation. I interpreted the preliminary report on the patient's right femur x-ray. There is no evidence of any acute fracture or dislocation. 03/17/24 08:48 CT scan of the head without contrast was interpreted by the radiologist and I reviewed the impression. There are no acute intracranial abnormalities. Counseled pt/family regarding: diagnosis, need for follow-up, rad results Medical Desision Making - Independent Historian Additional History obtained from: Spouse - Diagnostic Testing Radiological Interpretation: Interpreted by me, Reviewed by me, Teleradiologist Report - Risk of complications Low Risk: Low risk of morbidity from additional dx testing or treatment - Departure Departure Disposition: Home Clinical Impression: Fall with no significant injury, Contusion of right hip, Hematoma Condition: Stable Critical Care Time: No Referrals: TAWANA OCONNOR MD [Primary Care Provider] - Follow up/PCP as directed Additional Instructions: Hold your blood thinning medication for 48 hours. Alternate ice pack and warm compresses to the area of bruising 3 times a day for the next 48 hours. Use Tylenol for pain control.
[2024-03-17 07:50] VITALS: TEMP 98; O2SAT 93
--- NOTE | 2024-03-17 08:44 | XRAY ---
CLINICAL HISTORY: Fall injury COMPARISON: None. TECHNIQUE: An axial non-contrast 2.5mm sliced CT scan of the brain was performed from the skull base to the high parietal region with sagittal and coronal reconstruction. DLP 1125.61 mGy.cm. One of the following dose reduction techniques was utilized for this exam: Automated exposure control, adjustment of the mA and/or kV according to patient size, and use of iterative reconstruction. FINDINGS: There are a few tiny ill-defined [id number] areas noted in the deep white matter bilaterally, mainly on the left side, suggestive of microvascular ischemic changes, or perivascular space enlargement. The ventricular system, cortical sulci, and basal cisterns are mildly prominent and consistent with senile changes. The visualized brain parenchyma shows a normal appearance. Rincon-white matter differentiation is maintained. No midline shifts or deformity. No intracerebral or extra axial hematoma. Normal size and configuration of the cerebral ventricles. Normal CT appearance of the posterior fossa structures namely the cerebellar hemispheres, brainstem, and cerebellar peduncles. The IACs are unremarkable. The cerebello-pontine angles are clear. The pituitary gland, the pineal gland, and the optic chiasm are unremarkable. The osseous structures in the skull base are unremarkable. No definite calvarium fractures. The scanned paranasal sinuses show small mucosal thickeningleft in the maxillary sinus. 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 No acute intracranial abnormality. The rest of the non-enhanced CT study for the brain is unremarkable. Electronically Signed by: Radha Kerr MD. (03/17/2024 08:40:36 EDT)
--- NOTE | 2024-03-17 09:06 | XRAY ---
CLINICAL HISTORY: Fall injury COMPARISON: None. TECHNIQUE: X-ray of right hip AP, lateral views, including AP view of the pelvis. FINDINGS: Overall reduction of bone mineralization. A radiological examination of the hip demonstrates no lytic or sclerotic lesion. There is no evidence of acute fracture or dislocation. The cortical margins of the osseous structures are within normal limits. Minimal degenerative changes in the hips with mild narrowing of the joint spaces and subchondral sclerosis of the acetabulum. Osteoarticular bone irregular remodeling of the sacroiliac joints with osteophytes. There are no intra-articular or periarticular calcifications. The bowel gas pattern is normal. No definite radiopaque shadows could be depicted. IMPRESSION: No acute osseous abnormality is seen. Degenerative articular changes in the pelvis. DISCLAIMER:A subtle bone abnormality or fracture may not be readily apparent on X-rays, thus clinical correlation and further imaging including follow-up CT, MRI, or follow-up X-rays are advised as needed. Electronically Signed by: Radha Kerr MD. (03/17/2024 09:02:03 EDT)
--- NOTE | 2024-03-17 09:12 | XRAY ---
CLINICAL HISTORY: Fall injury COMPARISON: None. TECHNIQUE: X-ray of right femur AP, and lateral, 2 views. FINDINGS: Overall mild reduction of bone mineralization. A radiological examination of the hip demonstrates no lytic or sclerotic lesion. There is no evidence of acute fracture or dislocation. The cortical margins of the osseous structures are within normal limits. Joint spaces are unremarkable. There are no intra-articular or periarticular calcifications. Mild femoral vessel atheromatous calcifications. IMPRESSION: No acute osseous abnormality is seen. DISCLAIMER:A subtle bone abnormality or fracture may not be readily apparent on X-rays, thus clinical correlation and further imaging including follow-up CT, MRI, or follow-up X-rays are advised as needed. Electronically Signed by: Radha Kerr MD. (03/17/2024 09:07:21 EDT)
[2024-03-17 09:27] VITALS: BP 124/62; PULSE 62; RESP 18
== END 2024-03-17 09:29 | disposition home or self-care (01) ==
LOC: ED 07:23
DX: S70.01XA Contusion of right hip, initial encounter (principal); S70.11XA Contusion of right thigh, initial encounter; W19.XXXA Unspecified fall, initial encounter; E78.5 Hyperlipidemia, unspecified; I10 Essential (primary) hypertension; Z79.899 Other long term (current) drug therapy
CPT/HCPCS: 70450; 73502; 73552; 99283

== ENCOUNTER 2024-04-08 07:29 | Emergency (ER) | payer MEDICARE ==
[2024-04-08 07:43] VITALS: TEMP 97.6
[2024-04-08] MEDS ORDERED: Pepcid 20 MG VIAL IV ONE (07:46)
[2024-04-08] MEDS ORDERED: BABY ASPIRIN 81 MG CHEW ONE (07:46)
--- NOTE | 2024-04-08 07:46 | ERPHSYRPT ---
- History of Present Illness Time Seen by Provider: 04/08/24 07:35 Historian: patient Exam Limitations: no limitations Patient Subjective Stated Complaint: Shortness of breath with left shoulder pain Physician History: Patient woke up at 5 AM on April 08, 2024 with left shoulder pain and felt shortness of breath. It resolved after 10 minutes when he was able to get up and walk around, but when he tried to put his CPAP back on to go to sleep, sarah ent still felt short of breath, so he came to the emergency room to be further evaluated. Patient's symptoms have resolved now and he has no discomfort in his chest, no shortness of breath and no new weakness or loss sensation or loss coordination upper lower extremities or any facial droop or any slurred speech. Timing/Duration: today, resolved prior to arrival, sudden (Lasted 10 minutes) Activities at Onset: sleep Quality: aching Location: shoulder (left side) Chest Pain Radiation: no radiation Severity of Pain-Max: mild Severity of Pain-Current: none Modifying Factors: Worsens With: lying down Associated Symptoms: shortness of breath, No nausea, No vomiting, No palpitations, No heartburn, No abdominal pain, No cough, No hurts to breathe, No diaphoresis, No chills, No fever, No fatigue, No weakness, No swelling/lump in chest, No syncope, No rash, No headache, No dizziness, No edema Prior Chest Pain/Cardiac Workup: non-cardiac (History of atrial fibrillation), echocardiography, stress test Nitro Today/Relief: no nitro taken today Aspirin Treatment Today: no aspirin today Allergies/Adverse Reactions: No Known Drug Allergies Allergy (Verified 03/17/24 08:00) Home Medications: Aspirin [[place] Aspirin EC] 81 mg PO DAILY 08/04/17 [History] Bisacodyl [Dulcolax] 5 mg PO DAILY 08/04/17 [History] Calcium Carbonate/Vitamin D3 [Calcium 600-Vit D3 400 Tablet] 1 each PO BID 08/04/17 [History] Cyanocobalamin (Vitamin B-12) [Vitamin B12] 2,500 mcg PO DAILY 08/04/17 [History] Flecainide Acetate 100 mg PO BID 08/04/17 [History] Naproxen 500 mg PO DAILY 08/04/17 [History] Omeprazole 20 MG [Prilosec 20 mg] 40 mg PO DAILY 08/04/17 [History] Potassium Chloride Tab* [Klor Con] 10 meq PO DAILY 08/04/17 [History] Simvastatin 40 mg [Zocor 40 mg] 20 mg PO HS 08/04/17 [History] Vitamin B Complex [Super B Complex] 1 each PO DAILY 08/04/17 [History] Amlodipine Besylate 5 mg [Norvasc 5 mg] 5 mg PO DAILY 04/08/24 [History] Apixaban [Eliquis 2.5 mg Tablet] 2.5 mg PO DAILY 04/08/24 [History] Hx Tetanus, Diphtheria Vaccination/Date Given: Yes Hx Influenza Vaccination/Date Given: Yes Hx Pneumococcal Vaccination/Date Given: Yes Travel Risk - Emerging Infectious Disease Are you exhibiting symptoms associated with any current EIDs: No - Review of Systems Constitutional: No Fever, No Chills Eyes: No Symptoms Ears, Nose, & Throat: No Symptoms, No Nose Congestion, No Mouth Pain, No Painful Swallowing Respiratory: Dyspnea, No Cough, No Dyspnea on Exertion (TILLMAN) Cardiac: No Chest Pain, No Edema, No Syncope Abdominal/Gastrointestinal: No Abdominal Pain, No Nausea, No Vomiting, No Diarrhea Genitourinary Symptoms: No Dysuria, No Flank Pain Musculoskeletal: No Back Pain, No Neck Pain Skin: No Rash Neurological: No Dizziness, No Focal Weakness, No Sensory Changes Psychological: No Symptoms Endocrine: No Symptoms, No Excessive Sweating Hematologic/Lymphatic: No Anemia, No Easy Bleeding All Other Systems: Reviewed and Negative - Past Medical History Pertinent Past Medical History: Yes Neurological History: No Pertinent History ENT History: No Pertinent History Cardiac History: Arrhythmia, Hypertension Respiratory History: Sleep Apnea Endocrine Medical History: No Pertinent History Musculoskeletal History: Arthritis GI Medical History: GERD, Hemorrhoids Psycho-Social History: No Pertinent History Male Reproductive Disorders: Prostate Cancer Other Medical History: CDIFF - Past Surgical History Past Surgical History: Yes Neuro Surgical History: No Pertinent History Cardiac: No Pertinent History Respiratory: No Pertinent History Gastrointestinal: Appendectomy, Hernia Repair Genitourinary: Other Musculoskeletal: No Pertinent History Male Surgical History: Prostate Surgery, Other Other Surgical History: bladder sling, artificial spincter in scrotum, biopsy on right leg due to shrinking lef muscle. - Social History Smoking Status: Former smoker How long have you smoked: 35 years Exposure to second hand smoke: No Drug Use: none Patient Lives Alone: No - Social Determinants of Health Will the patient participate in the screening: Yes Do you worry about a steady place to live?: No In the past 12 months,have you had to go without utilities?: No Transportation Issues: No Has anyone in your support network made you feel unsafe?: No Have you or anyone in your house had to go without enough: No - Nursing Vital Signs Nursing Vital Signs: Initial Vital Signs Pulse Rate 66 04/08/24 07:30 Respiratory Rate 24 04/08/24 07:30 Blood Pressure 169/89 04/08/24 07:30 O2 Sat by Pulse Oximetry 95 04/08/24 07:30 Pain Scale Pain Intensity 0 - Physical Exam General Appearance: no apparent distress, alert Eye Exam: PERRL/EOMI, eyes nml inspection Ears, Nose, Throat Exam: normal ENT inspection, moist mucous membranes Neck Exam: normal inspection, non-tender, supple, full range of motion Respiratory Exam: normal breath sounds, lungs clear, No respiratory distress Cardiovascular Exam: regular rate/rhythm, normal heart sounds Gastrointestinal/Abdomen Exam: soft, No tenderness, No mass Back Exam: normal inspection, No CVA tenderness, No vertebral tenderness Extremity Exam: normal inspection, normal range of motion Neurologic Exam: alert, oriented x 3, cooperative, 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, normal mood/affect, sensation nml, No motor deficits Skin Exam: normal color, warm, dry - Course Nursing assessment & vital signs reviewed: Yes EKG Interpreted by Me: RATE (55), Sinus Ashutosh, Left [place] Deviation, Other (Sinus bradycardia 55 bpm, left axis deviation, prolonged DC interval, normal QTc interval, nonspecific intraventricular conduction delay, with signs of LVH with no significant change in comparison to EKG from August 05, 2017;) - Radiology Exams Chest X-ray Interpretation: Interpreted by me, Reviewed by me, No Pneumonia, No Pneumothorax, No Infiltrates, Nml Mediastinum, Other (Confirmed with radiologist interpretation; positive signs of old granulomatous) Ordered Tests: Active Orders 24 hr Category Date Time Status Forestry Technical Officer STAT Care 04/08/24 07:38 Active EKG-ER Only STAT Care 04/08/24 07:36 Active IV Insertion STAT Care 04/08/24 07:36 Active CHEST 1 VIEW (PORTABLE) Stat Exams 04/08/24 07:37 Completed CBC W DIFF Stat Lab 04/08/24 07:20 Completed CK-Creatinine Phosphokinase Stat Lab 04/08/24 07:20 Completed CMP Stat Lab 04/08/24 07:20 Completed CULTURE,URINE Stat Lab 04/08/24 10:52 Received LIPASE Stat Lab 04/08/24 07:20 Completed MAGNESIUM Stat Lab 04/08/24 07:20 Completed NT PRO BNPII Stat Lab 04/08/24 07:20 Completed PROTIME WITH INR Stat Lab 04/08/24 07:20 Completed TROPONIN Q4H Lab 04/08/24 07:20 Completed TROPONIN Q4H Lab 04/08/24 10:50 Completed TROPONIN Q4H Lab 04/08/24 15:45 Ordered UA W/RFX UR CULTURE Stat Lab 04/08/24 10:52 Completed Urine Triage Profile Stat Lab 04/08/24 09:33 Completed VENOUS BLOOD GAS Stat Lab 04/08/24 07:56 Completed Medication Summary Discontinued Medications Generic Name Dose Route Start Last Admin Trade Name Freq PRN Reason Stop Dose Admin Aspirin 324 mg 04/08/24 07:36 04/08/24 07:47 Aspirin 81 Mg Tab.Chew PO 04/08/24 07:37 324 mg STAT ONE Administration Aspirin Confirm 04/08/24 07:46 Aspirin 81 Mg Tab.Chew Administered 04/08/24 07:47 Dose 324 mg .ROUTE .STK-MED ONE Famotidine 20 mg 04/08/24 07:36 04/08/24 07:47 Famotidine 20 Mg/1 Vial IV 04/08/24 07:37 20 mg STAT ONE Administration Famotidine Confirm 04/08/24 07:46 Famotidine 20 Mg/1 Vial Administered 04/08/24 07:47 Dose 20 mg IV .STK-MED ONE Lab/Rad Data: Laboratory Result Diagrams 04/08/24 07:20 04/08/24 07:20 Laboratory Results 04/08/24 04/08/24 04/08/24 Range/Units 10:52 10:50 09:33 WBC (4.0-10.5) x10^3/uL RBC (4.1-5.6) x10^6/uL Hgb (12.5-18.0) g/dL Hct (42-50) % MCV (78-100) fL MCH (26-32) pg MCHC (32-36) g/dL RDW (11.5-14.0) % Plt Count (150-450) x10^3/uL MPV (7.5-11.0) fL Gran % (36.0-66.0) % Immature Gran % (Auto) (0.00-0.4) % Nucleat RBC Rel Count (0.00-0.1) % Eos # (Auto) (0-0.5) x10^3/uL Immature Gran # (Auto) (0.00-0.03) x10^3u/L Absolute Lymphs (auto) (1.0-4.6) x10^3/uL Absolute Monos (auto) (0.0-1.3) x10^3/uL Absolute Nucleated RBC (0.00-0.01) x10^3u/L Lymphocytes % (24.0-44.0) % Monocytes % (0.0-12.0) % Eosinophils % (0.00-5.0) % Basophils % (0.0-0.4) % Absolute Granulocytes (1.4-6.9) x10^3/uL Basophils # (0-0.4) x10^3/uL PT (9.4-12.5) SECONDS INR (0.8-3.0) pO2/FiO2 Ratio % VBG pH (7.32-7.42) VBG pCO2 at Pat Temp (42-55) mm/Hg VBG pO2 at Pat Temp (25-40) mm/Hg VBG HCO3 (22-28) meq/L VBG O2 Sat (Angelita) (95-100) VBG Base Excess (-2.0-2.0) VBG Hemoglobin VBG Carboxyhemoglobin (0.0-6.9) % T HGB POC Potassium (3.5-5.1) Sodium (135-145) mmol/L Potassium (3.5-5.1) mmol/L Chloride (98-107) mmol/L Carbon Dioxide (22-30) mmol/L Anion Gap (5-15) MEQ/L BUN (9-20) mg/dL Creatinine (0.66-1.25) mg/dL Estimated GFR ML/MIN Glucose (74-106) mg/dL Calcium (8.4-10.2) mg/dL Magnesium (1.6-2.3) mg/dL Total Bilirubin (0.2-1.3) mg/dL AST (17-59) U/L ALT (0-50) U/L Alkaline Phosphatase (38-126) U/L Creatine Kinase (55-170) U/L Troponin I < 0.012 (0.000-0.033) ng/mL NT-Pro-B Natriuret Pep (<300) pg/mL Serum Total Protein (6.3-8.2) g/dL Albumin (3.5-5.0) g/dL Lipase (23-300) U/L Urine Color Yellow (Yellow) Urine Appearance Cloudy A (Clear) Urine pH 8.0 (4.6-8.0) Ur Specific Massey 1.020 (1.005-1.030) Urine Protein Trace A (Negative) Urine Glucose (UA) Negative (Negative) mg/dL Urine Ketones Negative (Negative) Urine Blood Trace (Negative) Urine Nitrite Negative (Negative) Urine Bilirubin Negative (Negative) Urine Urobilinogen 0.2 (0.2) mg/dL Ur Leukocyte Esterase Small A (Negative) U Hyaline Cast (Auto) 6-10 A (0-2) /LPF Urine Microscopic RBC 0-2 (0-5) /HPF Urine Microscopic WBC 21-50 A (0-5) /HPF Ur Epithelial Cells Few (None Seen) /HPF Triple Phos Crystals 6-10 A (None Seen) /HPF Urine Bacteria Many A (None Seen) /HPF Urine Culture Reflexed YES (NO) Urine Opiates Level NEGATIVE (NEGATIVE) Ur Methadone NEGATIVE (NEGATIVE) Urine Barbiturates NEGATIVE (NEGATIVE) Ur Phencyclidine (PCP) NEGATIVE (NEGATIVE) Urine Amphetamine NEGATIVE (NEGATIVE) U Benzodiazepine Level NEGATIVE (NEGATIVE) Urine Cocaine NEGATIVE (NEGATIVE) Urine Marijuana (THC) NEGATIVE (NEGATIVE) 04/08/24 04/08/24 04/08/24 Range/Units 07:56 07:20 07:20 WBC (4.0-10.5) x10^3/uL RBC (4.1-5.6) x10^6/uL Hgb (12.5-18.0) g/dL Hct (42-50) % MCV (78-100) fL MCH (26-32) pg MCHC (32-36) g/dL RDW (11.5-14.0) % Plt Count (150-450) x10^3/uL MPV (7.5-11.0) fL Gran % (36.0-66.0) % Immature Gran % (Auto) (0.00-0.4) % Nucleat RBC Rel Count (0.00-0.1) % Eos # (Auto) (0-0.5) x10^3/uL Immature Gran # (Auto) (0.00-0.03) x10^3u/L Absolute Lymphs (auto) (1.0-4.6) x10^3/uL Absolute Monos (auto) (0.0-1.3) x10^3/uL Absolute Nucleated RBC (0.00-0.01) x10^3u/L Lymphocytes % (24.0-44.0) % Monocytes % (0.0-12.0) % Eosinophils % (0.00-5.0) % Basophils % (0.0-0.4) % Absolute Granulocytes (1.4-6.9) x10^3/uL Basophils # (0-0.4) x10^3/uL PT (9.4-12.5) SECONDS INR (0.8-3.0) pO2/FiO2 Ratio 21.0 % VBG pH 7.41 (7.32-7.42) VBG pCO2 at Pat Temp 37 L (42-55) mm/Hg VBG pO2 at Pat Temp 75 H (25-40) mm/Hg VBG HCO3 23.5 (22-28) meq/L VBG O2 Sat (Angelita) 96.1 (95-100) VBG Base Excess -0.8 (-2.0-2.0) VBG Hemoglobin 15.7 VBG Carboxyhemoglobin 4.1 (0.0-6.9) % T HGB POC Potassium 4.3 (3.5-5.1) Sodium (135-145) mmol/L Potassium (3.5-5.1) mmol/L Chloride (98-107) mmol/L Carbon Dioxide (22-30) mmol/L Anion Gap (5-15) MEQ/L BUN (9-20) mg/dL Creatinine (0.66-1.25) mg/dL Estimated GFR ML/MIN Glucose (74-106) mg/dL Calcium (8.4-10.2) mg/dL Magnesium 2.0 (1.6-2.3) mg/dL Total Bilirubin (0.2-1.3) mg/dL AST (17-59) U/L ALT (0-50) U/L Alkaline Phosphatase (38-126) U/L Creatine Kinase (55-170) U/L Troponin I < 0.012 (0.000-0.033) ng/mL NT-Pro-B Natriuret Pep (<300) pg/mL Serum Total Protein (6.3-8.2) g/dL Albumin (3.5-5.0) g/dL Lipase 105 (23-300) U/L Urine Color (Yellow) Urine Appearance (Clear) Urine pH (4.6-8.0) Ur Specific Massey (1.005-1.030) Urine Protein (Negative) Urine Glucose (UA) (Negative) mg/dL Urine Ketones (Negative) Urine Blood (Negative) Urine Nitrite (Negative) Urine Bilirubin (Negative) Urine Urobilinogen (0.2) mg/dL Ur Leukocyte Esterase (Negative) U Hyaline Cast (Auto) (0-2) /LPF Urine Microscopic RBC (0-5) /HPF Urine Microscopic WBC (0-5) /HPF Ur Epithelial Cells (None Seen) /HPF Triple Phos Crystals (None Seen) /HPF Urine Bacteria (None Seen) /HPF Urine Culture Reflexed (NO) Urine Opiates Level (NEGATIVE) Ur Methadone (NEGATIVE) Urine Barbiturates (NEGATIVE) Ur Phencyclidine (PCP) (NEGATIVE) Urine Amphetamine (NEGATIVE) U Benzodiazepine Level (NEGATIVE) Urine Cocaine (NEGATIVE) Urine Marijuana (THC) (NEGATIVE) 04/08/24 04/08/24 04/08/24 Range/Units 07:20 07:20 07:20 WBC 5.2 (4.0-10.5) x10^3/uL RBC 4.79 (4.1-5.6) x10^6/uL Hgb 15.1 (12.5-18.0) g/dL Hct 44.6 (42-50) % MCV 93.1 (78-100) fL MCH 31.5 (26-32) pg MCHC 33.9 (32-36) g/dL RDW 13.5 (11.5-14.0) % Plt Count 191 (150-450) x10^3/uL MPV 11.8 H (7.5-11.0) fL Gran % 70.3 H (36.0-66.0) % Immature Gran % (Auto) 0.6 H (0.00-0.4) % Nucleat RBC Rel Count 0.0 (0.00-0.1) % Eos # (Auto) 0.14 (0-0.5) x10^3/uL Immature Gran # (Auto) 0.03 (0.00-0.03) x10^3u/L Absolute Lymphs (auto) 0.86 L (1.0-4.6) x10^3/uL Absolute Monos (auto) 0.48 (0.0-1.3) x10^3/uL Absolute Nucleated RBC 0.00 (0.00-0.01) x10^3u/L Lymphocytes % 16.4 L (24.0-44.0) % Monocytes % 9.2 (0.0-12.0) % Eosinophils % 2.7 (0.00-5.0) % Basophils % 0.8 (0.0-0.4) % Absolute Granulocytes 3.68 (1.4-6.9) x10^3/uL Basophils # 0.04 (0-0.4) x10^3/uL PT 11.7 (9.4-12.5) SECONDS INR 1.08 (0.8-3.0) pO2/FiO2 Ratio % VBG pH (7.32-7.42) VBG pCO2 at Pat Temp (42-55) mm/Hg VBG pO2 at Pat Temp (25-40) mm/Hg VBG HCO3 (22-28) meq/L VBG O2 Sat (Angelita) (95-100) VBG Base Excess (-2.0-2.0) VBG Hemoglobin VBG Carboxyhemoglobin (0.0-6.9) % T HGB POC Potassium (3.5-5.1) Sodium 143 (135-145) mmol/L Potassium 4.3 (3.5-5.1) mmol/L Chloride 114 H (98-107) mmol/L Carbon Dioxide 21 L (22-30) mmol/L Anion Gap 13.1 (5-15) MEQ/L BUN 26 H (9-20) mg/dL Creatinine 1.24 (0.66-1.25) mg/dL Estimated GFR 59.1 ML/MIN Glucose 115 H (74-106) mg/dL Calcium 9.2 (8.4-10.2) mg/dL Magnesium (1.6-2.3) mg/dL Total Bilirubin 0.80 (0.2-1.3) mg/dL AST 29 (17-59) U/L ALT 36 (0-50) U/L Alkaline Phosphatase 71 (38-126) U/L Creatine Kinase 41 L (55-170) U/L Troponin I (0.000-0.033) ng/mL NT-Pro-B Natriuret Pep 55.5 (<300) pg/mL Serum Total Protein 7.0 (6.3-8.2) g/dL Albumin 4.3 (3.5-5.0) g/dL Lipase (23-300) U/L Urine Color (Yellow) Urine Appearance (Clear) Urine pH (4.6-8.0) Ur Specific Massey (1.005-1.030) Urine Protein (Negative) Urine Glucose (UA) (Negative) mg/dL Urine Ketones (Negative) Urine Blood (Negative) Urine Nitrite (Negative) Urine Bilirubin (Negative) Urine Urobilinogen (0.2) mg/dL Ur Leukocyte Esterase (Negative) U Hyaline Cast (Auto) (0-2) /LPF Urine Microscopic RBC (0-5) /HPF Urine Microscopic WBC (0-5) /HPF Ur Epithelial Cells (None Seen) /HPF Triple Phos Crystals (None Seen) /HPF Urine Bacteria (None Seen) /HPF Urine Culture Reflexed (NO) Urine Opiates Level (NEGATIVE) Ur Methadone (NEGATIVE) Urine Barbiturates (NEGATIVE) Ur Phencyclidine (PCP) (NEGATIVE) Urine Amphetamine (NEGATIVE) U Benzodiazepine Level (NEGATIVE) Urine Cocaine (NEGATIVE) Urine Marijuana (THC) (NEGATIVE) - Progress Progress: improved Air Movement: good Progress Note: 04/08/24 09:30 Patient remains asymptomatic with no chest pain or shortness of and reviewed and will do a second troponin 04/08/24 11:35 Patient remains asymptomatic, and in sinus rhythm on monitoring specialist but bradycardia 06/04/24 11:46 Patient is a 78-year-old male who came to the emergency room due to having brief shortness of breath this morning when he woke up, as well as left shoulder pain. Initial EKG showed sinus bradycardia but otherwise no acute changes to suggest any ischemia, injury or infarction, and his initial troponin was negative, and had normal initial chest x-ray with no signs of effusion or consolidation that could cause symptoms and his proBNP was normal, and venous blood gas was normal with a pH of 7.41, and he did not require any oxygen or ventilatory support throughout his time in the emergency room. Patient had remote history of prostate cancer with him being cancer free over 10 years. Patient no signs of anemia to explain his dyspnea, and he did have some signs of left AC joint arthritis which could tend to be explaining his shoulder pain as he had no other signs of injury on the x-ray of the chest and full range of motion with no neurovascular deficits in the left upper extremity and on the left shoulder joint. Patient's UDS was negative, and urinalysis shows small LE with many bacteria, so this will be sent for culture and will treat accordingly if it comes back positive. Patient had repeat troponin that also was negative, so with patient being asymptomatic throughout his time in the emergency depa rtment, having no signs of heart failure or volume overload on his examination, no abnormal labs require inpatient mission, patient will be discharged home to follow-up with his primary care physician to continue evaluation of his symptoms. Patient is to return back to nearest emergency room with any worsening dyspnea, new chest pain, new back pain, new fever, new inability to urinate, hematemesis, new inability urinate, new flank pain, new abdominal pain or any other concerning signs or symptoms that were not present at today's emergency room visit for immediate reevaluation in the nearest emergency department Blood Culture(s) Obtained: No Antibiotics given: No Counseled pt/family regarding: lab results, diagnosis, need for follow-up, rad results Medical Desision Making - Independent Historian Additional History obtained from: Spouse - Diagnostic Testing Diagnostic test were ordered, analyzed, and reviewed by me: Yes Radiological Interpretation: Interpreted by me, Reviewed by me - Risk of complications Low Risk: Low risk of morbidity from additional dx testing or treatment (HEART score: 3, low risk for MACE in the next 30 days) - Departure Departure Disposition: Home Clinical Impression: Acute pain of left shoulder, Abnormal urinalysis, Arthritis of left acromioclav icular joint, Essential hypertension Dyspnea Qualifiers: Dyspnea type: unspecified Qualified Code(s): R06.00 - Dyspnea, unspecified Condition: Good Critical Care Time: No Referrals: TAWANA OCONNOR MD [Primary Care Provider] - Follow up with PCP 1 day Instructions: Chest Pain (DC), Shortness of breath, Urinary Tract Infection, Adult ED, Shoulder Pain ED Additional Instructions: Return back to the nearest emergency room if you have any worsening shortness of breath, worsening shoulder pain, new chest pain, new back pain, any pain on breathing, new fever, new abdominal pain, new painful urination, new confusion, new altered mental status, new skin rash or bruising or any other concerning signs or symptoms that were not present at today's emergency room visit for immediate reevaluation in the nearest emergency
[2024-04-08] MEDS: BABY ASPIRIN 81 MG CHEW PO ONE (07:47)
[2024-04-08] MEDS: Pepcid 20 MG VIAL IV ONE (07:47)
[2024-04-08 07:56] LABS: Absolute Neutrophil Ct (ANC) 3.68 x10^3/uL (1.4-6.9); BASOPHIL % 0.8 % (0.0-0.4); Basophil (Absolute #) 0.04 x10^3/uL (0-0.4); Eosinophil % 2.7 % (0.00-5.0); Eosinophil (Absolute #) 0.14 x10^3/uL (0-0.5); Hematocrit 44.6 % (42-50); Hemoglobin 15.1 g/dL (12.5-18.0); IMMATURE GRAN # 0.03 x10^3u/L (0.00-0.03); IMMATURE GRAN % 0.6 % (0.00-0.4); Lymphocyte (Absolute #) 0.86 x10^3/uL (1.0-4.6); Lymphocytes % 16.4 % (24.0-44.0); Mean Cell Volume 93.1 fL (78-100); Mean Corpuscular Hemoglobin 31.5 pg (26-32); Mean Corpuscular Hgb Concent. 33.9 g/dL (32-36); Mean Platelet Volume 11.8 fL (7.5-11.0); Monocyte (Absolute #) 0.48 x10^3/uL (0.0-1.3); Monocytes % 9.2 % (0.0-12.0); Neutrophil % 70.3 % (36.0-66.0); Platelet Count 191 x10^3/uL (150-450); Red Blood Count 4.79 x10^6/uL (4.1-5.6); Red Cell Distribution Width 13.5 % (11.5-14.0); White Blood Count 5.2 x10^3/uL (4.0-10.5)
[2024-04-08 08:12] LABS: INR 1.08 (0.8-3.0); PROTIME 11.7 SECONDS (9.4-12.5)
[2024-04-08 08:18] LABS: VBG BASE EXCESS -0.8 (-2.0-2.0); VBG CARBOXYHEMOGLOBIN 4.1 % T HGB (0.0-6.9); VBG HCO3- 23.5 meq/L (22-28); VBG HEMOGLOBIN 15.7; VBG O2 SATURATION 96.1 (95-100); VBG POTASSIUM 4.3 (3.5-5.1); VBG pH 7.41 (7.32-7.42)
[2024-04-08 08:19] LABS: ALBUMIN 4.3 g/dL (3.5-5.0); ANION GAP 13.1 MEQ/L (5-15); BILIRUBIN,TOTAL 0.8 mg/dL (0.2-1.3); Calcium 9.2 mg/dL (8.4-10.2); Creatinine 1 1.24 mg/dL (0.66-1.25); EST GLOMERULAR FILTRATION RATE 59.1 ML/MIN; NT PRO BNPII 55.5 pg/mL (<300); Potassium 4.3 mmol/L (3.5-5.1)
--- NOTE | 2024-04-08 08:55 | XRAY ---
Indication: Chest pain. Comparison: August 04, 2017 Portable chest remains inflated and clear again with a few incidental calcified granulomas. Heart not enlarged. Bony thorax intact again with osteopenia and mild degenerative changes. No new/acute findings.
[2024-04-08 10:00] LABS: Amphetamine,Urine NEGATIVE (NEGATIVE); Barbiturate,Urine NEGATIVE (NEGATIVE); Benzodiazepine,Urine NEGATIVE (NEGATIVE); Cocaine,Urine NEGATIVE (NEGATIVE); Methadone,Urine NEGATIVE (NEGATIVE); Opiate,Urine NEGATIVE (NEGATIVE); PCP,Urine NEGATIVE (NEGATIVE); THC,Urine NEGATIVE (NEGATIVE)
[2024-04-08 11:10] VITALS: RESP 19
[2024-04-08 11:10] LABS: Appearance Cloudy (Clear); Bacteria Many /HPF (None Seen); Bilirubin Negative (Negative); Blood Trace (Negative); Epithelial Cells Few /HPF (None Seen); Glucose, Urine Negative (Negative); Ketones Negative (Negative); Leukocyte Esterase Small (Negative); Nitrite Negative (Negative); Protein,Urine Dip Trace (Negative); RBC 0-2 /HPF (0-5); Urobilinogen 0.2 mg/dL (0.2); WBC 21-50 /HPF (0-5)
[2024-04-08 11:12] LABS: ADD URINE CULTURE? YES (NO)
[2024-04-08 11:46] VITALS: BP 162/78; PULSE 52; O2SAT 95
== END 2024-04-08 11:52 | disposition home or self-care (01) ==
LOC: ED 07:29
DX: M25.512 Pain in left shoulder (principal); R82.90 Unspecified abnormal findings in urine; M19.012 Primary osteoarthritis, left shoulder; I10 Essential (primary) hypertension; R06.00 Dyspnea, unspecified; Z79.01 Long term (current) use of anticoagulants; Z79.899 Other long term (current) drug therapy
CPT/HCPCS: 36000; 36415; 71045; 80053; 80307; 81001; 82550; 82805; 83690; 83735; 83880; 84484; 85025; 85610; 87077; 87086; 87186; 93005; 93041; 96374; 99284; A9270-GY

== ENCOUNTER 2024-06-05 09:09 | Emergency (ER) | payer MEDICARE, OTHER ==
--- NOTE | 2024-06-05 09:20 | ERPHSYRPT ---
- History of Present Illness Time Seen by Provider: 06/05/24 09:19 Historian: patient Exam Limitations: no limitations Physician History: Patient is a 78-year-old white male patient who came in by private vehicle and receives his medical care primarily through the [facility] system and presents with at least 2 months of intermittent rectal bleeding. Patient had a col onoscopy approximately 6 to 8 months ago and was found to have some benign polyps but no other significant findings. Patient is on Eliquis anticoagulation therapy because of his atrial fibrillation. Patient took his last dose of Eliquis this morning. He has no history of liver disease. Patient is concerned about the presence of intermittent rectal bleeding chronically, because he states that a family friend had similar symptoms and a negative colonoscopy and was found on CAT scan to have a pancreatic cancer. I reviewed the patient's hemoglobin, hematocrit, platelet count and coagulation values dated 04/08/2024. The coagulation values on that date are within normal limits. Patient's hemo globin hematocrit are 15/44.6 and his platelet count was 191,000. Patient has a history of hyperlipidemia, gastroesophageal reflux disease, atrial fibrillation, hypertension and he has a history of sleep apnea and prostate cancer. Patient denies chest pain and he denies shortness of breath. Timing/Duration: other (Symptoms of rectal bleeding for 2 months or more) Quality: other (No pain) Pain Radiation: no radiation Severity of Pain-Max: none Severity of Pain-Current: none Modifying Factors: Improves With: nothing Associated Symptoms: denies symptoms Previous symptoms: same symptoms as today, no recent treatment Allergies/Adverse Reactions: No Known Drug Allergies Allergy (Verified 06/05/24 09:27) Home Medications: Bisacodyl [Dulcolax] 10 mg PO DAILY 08/04/17 [History] Calcium Carbonate/Vitamin D3 [Calcium 600-Vit D3 400 Tablet] 1 each PO BID 08/04/17 [History] Cyanocobalamin (Vitamin B-12) [Vitamin B12] 2,500 mcg PO DAILY 08/04/17 [History] Flecainide Acetate 100 mg PO BID 08/04/17 [History] Potassium Chloride Tab* [Klor Con] 10 meq PO DAILY 08/04/17 [History] Vitamin B Complex [Super B Complex] 1 each PO DAILY 08/04/17 [History] Apixaban [Eliquis 2.5 mg Tablet] 5 mg PO BID 04/08/24 [History] Amlodipine Besylate 2.5 mg PO DAILY 06/05/24 [History] Atorvastatin Calcium 40 mg PO DAILY 06/05/24 [History] Mirabegron [Mirabegron ER] 50 mg PO DAILY 06/05/24 [History] PANTOPRAZOLE 40 mg Tablet [Protonix 40MG Tablet] 40 mg PO DAILY 06/05/24 [History] Hx Tetanus, Diphtheria Vaccination/Date Given: Yes Hx Influenza Vaccination/Date Given: Yes Hx Pneumococcal Vaccination/Date Given: Yes Travel Risk - International Travel Have you traveled outside of the country in past 3 weeks: No - Emerging Infectious Disease Are you exhibiting symptoms associated with any current EIDs: No - Review of Systems Constitutional: No Symptoms Eyes: No Symptoms Ears, Nose, & Throat: No Symptoms Respiratory: No Symptoms Cardiac: No Symptoms Abdominal/Gastrointestinal: Other (Intermittent bright red blood per rectum) Genitourinary Symptoms: No Symptoms Musculoskeletal: No Symptoms Skin: No Symptoms Neurological: No Symptoms Psychological: No Symptoms Endocrine: No Symptoms Hematologic/Lymphatic: No Symptoms Immunological/Allergic: No Symptoms All Other Systems: Reviewed and Negative - Past Medical History Pertinent Past Medical History: Yes Neurological History: No Pertinent History ENT History: No Pertinent History Cardiac History: Arrhythmia, Hypertension Respiratory History: Sleep Apnea Endocrine Medical History: No Pertinent History Musculoskeletal History: Arthritis GI Medical History: GERD, Hemorrhoids Psycho-Social History: No Pertinent History Male Reproductive Disorders: Prostate Cancer Other Medical History: CDIFF - Past Surgical History Past Surgical History: Yes Neuro Surgical History: No Pertinent History Cardiac: No Pertinent History Respiratory: No Pertinent History Gastrointestinal: Appendectomy, Hernia Repair Genitourinary: Other Musculoskeletal: No Pertinent History Male Surgical History: Prostate Surgery, Other Other Surgical History: bladder sling, artificial spincter in scrotum, biopsy on right leg due to shrinking lef muscle. - Social History Smoking Status: Former smoker How long have you smoked: 35 years Exposure to second hand smoke: No Drug Use: none Patient Lives Alone: No - Social Determinants of Health Will the patient participate in the screening: Yes Do you worry about a steady place to live?: No In the past 12 months,have you had to go without utilities?: No Transportation Issues: No Has anyone in your support network made you feel unsafe?: No Have you or anyone in your house had to go without enough: No - Nursing Vital Signs Nursing Vital Signs: Initial Vital Signs Temperature 97.9 F 06/05/24 09:16 Pulse Rate 71 06/05/24 09:16 Respiratory Rate 17 06/05/24 09:16 Blood Pressure 186/89 06/05/24 09:16 O2 Sat by Pulse Oximetry 97 06/05/24 09:16 Pain Scale Pain Intensity 0 Ordered Tests: Active Orders 24 hr Category Date Time Status IV Insertion STAT Care 06/05/24 09:29 Active ABDOMEN AND PELVIS W/0 CONTRAS [CT] Stat Exams 06/05/24 09:28 Completed AMYLASE Stat Lab 06/05/24 09:50 Completed CBC W DIFF Stat Lab 06/05/24 09:50 Completed CMP Stat Lab 06/05/24 09:50 Completed LIPASE Stat Lab 06/05/24 09:50 Completed PROTIME WITH INR Stat Lab 06/05/24 09:50 Completed Lab/Rad Data: Laboratory Result Diagrams 06/05/24 09:50 06/05/24 09:50 Laboratory Results 06/05/24 06/05/24 06/05/24 Range/Units 09:50 09:50 09:50 WBC 3.9 L (4.23-9.07) x10^3/uL RBC 5.08 (4.63-6.08) x10^6/uL Hgb 15.8 (13.7-17.5) g/dL Hct 46.4 (40.1-51.0) % MCV 91.3 (79.0-92.2) fL MCH 31.1 (25.7-32.2) pg MCHC 34.1 (32.3-36.5) g/dL RDW 13.3 (11.6-14.4) % Plt Count 189 (163-337) x10^3/uL MPV 11.3 (9.4-12.4) fL Gran % 63.0 (34.0-67.9) % Immature Gran % (Auto) 0.3 (0.001-0.429) % Nucleat RBC Rel Count 0.0 (0.00-0.2) % Eos # (Auto) 0.13 (0.04-0.54) x10^3/uL Immature Gran # (Auto) 0.01 (0.001-0.031) x10^3u/L Absolute Lymphs (auto) 0.91 L (1.32-3.57) x10^3/uL Absolute Monos (auto) 0.35 (0.30-0.82) x10^3/uL Absolute Nucleated RBC 0.00 (0.00-0.012) x10^3u/L Lymphocytes % 23.5 (21.8-53.1) % Monocytes % 9.0 (5.3-12.2) % Eosinophils % 3.4 (0.8-7.0) % Basophils % 0.8 (0.2-1.2) % Absolute Granulocytes 2.45 (1.78-5.38) x10^3/uL Basophils # 0.03 (0.01-0.08) x10^3/uL PT 11.6 (9.4-12.5) SECONDS INR 1.07 (0.8-3.0) Sodium 141 (135-145) mmol/L Potassium 3.7 (3.5-5.1) mmol/L Chloride 109 H (98-107) mmol/L Carbon Dioxide 25 (22-30) mmol/L Anion Gap 11.0 (5-15) MEQ/L BUN 22 H (9-20) mg/dL Creatinine 1.23 (0.66-1.25) mg/dL Estimated GFR 59.7 ML/MIN Glucose 161 H (74-106) mg/dL Calcium 9.0 (8.4-10.2) mg/dL Total Bilirubin 1.10 (0.2-1.3) mg/dL AST 28 (17-59) U/L ALT 41 (0-50) U/L Alkaline Phosphatase 69 (38-126) U/L Serum Total Protein 6.5 (6.3-8.2) g/dL Albumin 4.0 (3.5-5.0) g/dL Amylase 73 (30-110) U/L Lipase 68 (23-300) U/L - Progress Progress: unchanged, re-examined Progress Note: 06/05/24 10:58 My medical decision making and the assignment of moderate complexity to this patient's medical issue today is based on review of the patient's past medical history, review of the patient's medication list, review patient drug allergy list, history present illness and physical findings on examination. The workup in this patient includes CBC, CMP, amylase, lipase, PT/INR and CT scan of the abdomen and pelvis without contrast. The differential diagnosis includes but is not limited to internal hemorrhoids, external hemorrhoids, diverticulitis, colitis I interpreted the patient's laboratory data results. The laboratory data results do not show an acute, emergent medical issue. The CBC and coagulation study results are stable when compared to those from 04/08/2024. 06/05/24 11:[address] scan of the abdomen pelvis without contrast was interpreted by the radiologist and I reviewed the impression. The impression states chronic findings. There is sigmoid diverticulosis. There is a left adrenal adenoma. 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 There is a supraumbilical fatty, ventral hernia. The remainder of the CT scan of the abdomen pelvis without contrast is negative. There is no omi dence of free fluid or free air. Counseled pt/family regarding: lab results, diagnosis, need for follow-up, rad results Medical Desision Making - Diagnostic Testing Diagnostic test were ordered, analyzed, and reviewed by me: Yes Radiological Interpretation: Reviewed by me, Teleradiologist Report - Risk of complications Low Risk: Low risk of morbidity from additional dx testing or treatment - Departure Departure Disposition: Home Clinical Impression: Rectal bleeding Condition: Stable Critical Care Time: No Referrals: HOSPITAL,'S [Primary Care Provider] - Follow up/PCP as directed Additional Instructions: Drink plenty of fluids. Advance your diet as tolerated. Continue your medications as prescribed. Call your primary care provider and assistant credit manager to obtain a follow-up appointment to be seen in the next 5 to 7 days.
[2024-06-05 09:27] VITALS: TEMP 97.9
[2024-06-05 09:56] LABS: Absolute Neutrophil Ct (ANC) 2.45 x10^3/uL (1.78-5.38); BASOPHIL % 0.8 % (0.2-1.2); Basophil (Absolute #) 0.03 x10^3/uL (0.01-0.08); Eosinophil % 3.4 % (0.8-7.0); Eosinophil (Absolute #) 0.13 x10^3/uL (0.04-0.54); Hematocrit 46.4 % (40.1-51.0); Hemoglobin 15.8 g/dL (13.7-17.5); IMMATURE GRAN # 0.01 x10^3u/L (0.001-0.031); IMMATURE GRAN % 0.3 % (0.001-0.429); Lymphocyte (Absolute #) 0.91 x10^3/uL (1.32-3.57); Lymphocytes % 23.5 % (21.8-53.1); Mean Cell Volume 91.3 fL (79.0-92.2); Mean Corpuscular Hemoglobin 31.1 pg (25.7-32.2); Mean Corpuscular Hgb Concent. 34.1 g/dL (32.3-36.5); Mean Platelet Volume 11.3 fL (9.4-12.4); Monocyte (Absolute #) 0.35 x10^3/uL (0.30-0.82); Platelet Count 189 x10^3/uL (163-337); Red Blood Count 5.08 x10^6/uL (4.63-6.08); Red Cell Distribution Width 13.3 % (11.6-14.4); White Blood Count 3.9 x10^3/uL (4.23-9.07)
[2024-06-05 10:07] LABS: BILIRUBIN,TOTAL 1.1 mg/dL (0.2-1.3); Creatinine 1 1.23 mg/dL (0.66-1.25); EST GLOMERULAR FILTRATION RATE 59.7 ML/MIN; Potassium 3.7 mmol/L (3.5-5.1); Total Protein 6.5 g/dL (6.3-8.2)
[2024-06-05 10:08] LABS: INR 1.07 (0.8-3.0); PROTIME 11.6 SECONDS (9.4-12.5)
--- NOTE | 2024-06-05 10:58 | XRAY ---
Indication: Rectal bleeding for weeks. Multiple contiguous axial images obtained through the abdomen and pelvis without contrast. Comparison: None Lung bases demonstrates scattered bibasilar subsegmental atelectasis/scarring and 1.5 cm left posterior gutter calcified granuloma. Heart not enlarged. Noncontrasted stomach and bowel loops appear nonobstructed. Appendectomy reported. Minimal sigmoid diverticulosis without diverticulitis. Left anterior pelvis demonstrates fluid-filled reservoir with catheter traversing towards the penis. 1.4 cm left adrenal adenoma and a few splenic calcified granulomas. No free fluid/air. Remaining liver, gallbladder, pancreas, spleen, adrenal glands, kidneys, ureters, and bladder are unremarkable for noncontrast exam. Mild scattered aortoiliac calcifications without AAA. Osseous structures intact with minimal/mild generative changes throughout the spine, mild levoscoliosis centered at L2-L3, and mild degenerative changes both hips. Tiny supraumbilical ventral hernia defect with herniated omental fat. Impression: 1. Chronic findings including bibasilar atelectasis/scarring, sigmoid diverticulosis, left adrenal adenoma, arteriosclerotic disease, chronic bony findings, supraumbilical fatty ventral hernia, probable penile implant, and old granulomatous disease. 2. Remaining CT abdomen/pelvis without contrast exam is negative.
[2024-06-05 11:15] VITALS: BP 142/65; PULSE 54; RESP 15; O2SAT 94
== END 2024-06-05 11:43 | disposition home or self-care (01) ==
LOC: ED 09:09
DX: K62.5 Hemorrhage of anus and rectum (principal); E78.5 Hyperlipidemia, unspecified; I10 Essential (primary) hypertension; Z79.01 Long term (current) use of anticoagulants; Z79.899 Other long term (current) drug therapy
CPT/HCPCS: 36415; 74176; 80053; 82150; 83690; 85025; 85610; 99283

== ENCOUNTER 2025-06-01 06:58 | Emergency (ER) | payer OTHER ==
[2025-06-01 07:11] VITALS: TEMP 96.8
--- NOTE | 2025-06-01 08:06 | ERPHSYRPT ---
- History of Present Illness Time Seen by Provider: 06/01/25 07:20 Source: patient Exam Limitations: no limitations Patient Subjective Stated Complaint: pt states that he got hit in the neck with a golf ball on sunday. pt states that he was worried about the size Triage Nursing Assessment: pt ambulated into the er; pt is axo x4; c/o neck injury; pt states 3/10 pain to left neck; hematoma present to neck; tenderness present with left side of neck; swelling present to neck; no audible wheezing present; no upper airway obstruction noted; no respiratory distress present; hypertensive Physician History: Patient is an 79-year-old male on Eliquis for cardiac dysrhythmia presents to our emergency department for evaluation of pain swelling and bruising to his neck. Patient states he was hit in the left side of his neck with a golf ball on Sunday 5 days ago. Patient states since then the bruising has gotten worse. The area of injury is more tender. Patient declined pain medication. No C-spine pain or tenderness. Patient was hit right over the left carotid artery. Patient denies difficulty breathing shortness of breath. Patient states he is just concerned because the area is swollen tender and bruised. No other injuries reported. Patient otherwise feels well. He voices no other complaints or concerns at this time. Portions of this note were created with voice recognition technology. There may be grammatical, spelling, punctuation or sound alike errors Timing/Duration: day(s) (5 days ago) Severity: moderate Modifying Factors: Improves With: nothing Associated Symptoms: denies symptoms Allergies/Adverse Reactions: No Known Drug Allergies Allergy (Verified 06/01/25 07:03) Home Medications: Bisacodyl [Dulcolax] 10 mg PO DAILY 08/04/17 [History] Calcium Carbonate/Vitamin D3 [Calcium 600-Vit D3 400 Tablet] 1 each PO BID 08/04/17 [History] Cyanocobalamin (Vitamin B-12) [Vitamin B12] 2,500 mcg PO DAILY 08/04/17 [History] Flecainide Acetate 100 mg PO BID 08/04/17 [History] Potassium Chloride Tab* [Klor Con] 10 meq PO DAILY 08/04/17 [History] Vitamin B Complex [Super B Complex] 1 each PO DAILY 08/04/17 [History] Apixaban [Eliquis 2.5 mg Tablet] 5 mg PO BID 04/08/24 [History] Amlodipine Besylate 5 mg PO DAILY 06/05/24 [History] Atorvastatin Calcium 40 mg PO DAILY 06/05/24 [History] PANTOPRAZOLE 40 mg Tablet [Protonix 40MG Tablet] 40 mg PO DAILY 06/05/24 [History] Vibegron [Gemtesa] 75 mg PO DAILY 04/26/25 [History] Hx Tetanus, Diphtheria Vaccination/Date Given: Yes Hx Influenza Vaccination/Date Given: Yes Hx Pneumococcal Vaccination/Date Given: Yes Travel Risk - International Travel Have you traveled outside of the country in past 3 weeks: No - Emerging Infectious Disease Are you exhibiting symptoms associated with any current EIDs: No - Review of Systems Constitutional: No Symptoms, No Fever, No Chills Eyes: No Symptoms Ears, Nose, & Throat: No Symptoms Respiratory: No Symptoms, No Cough, No Dyspnea Cardiac: No Symptoms, No Chest Pain, No Edema, No Syncope Abdominal/Gastrointestinal: No Symptoms, No Abdominal Pain, No Nausea, No Vomiting, No Diarrhea Genitourinary Symptoms: No Symptoms, No Dysuria Musculoskeletal: No Symptoms, No Back Pain, No Neck Pain Skin: No Symptoms, No Rash Neurological: No Symptoms, No Dizziness, No Focal Weakness, No Sensory Changes Psychological: No Symptoms Endocrine: No Symptoms Hematologic/Lymphatic: No Symptoms Immunological/Allergic: No Symptoms All Other Systems: Reviewed and Negative - Past Medical History Pertinent Past Medical History: Yes Neurological History: No Pertinent History ENT History: No Pertinent History Cardiac History: Arrhythmia, Hypertension Respiratory History: Sleep Apnea Endocrine Medical History: No Pertinent History Musculoskeletal History: Arthritis GI Medical History: GERD, Hemorrhoids Psycho-Social History: No Pertinent History Male Reproductive Disorders: Prostate Cancer Other Medical History: CDIFF - Past Surgical History Past Surgical History: Yes Neuro Surgical History: No Pertinent History Cardiac: No Pertinent History Respiratory: No Pertinent History Gastrointestinal: Appendectomy, Hernia Repair Genitourinary: Other Musculoskeletal: No Pertinent History Male Surgical History: Prostate Surgery, Other Other Surgical History: bladder sling, artificial spincter in scrotum, biopsy on right leg due to shrinking lef muscle. - Social History Smoking Status: Former smoker How long have you smoked: 35 years Exposure to second hand smoke: No Drug Use: none - Social Determinants of Health Will the patient participate in the screening: Yes Do you worry about a steady place to live?: No Do you have any problems with any of the following?: No known problems In the past 12 months,have you had to go without utilities?: No Transportation Issues: No Has anyone in your support network made you feel unsafe?: No Have you or anyone in your house had to go w/o enough food: No - Nursing Vital Signs Nursing Vital Signs: Initial Vital Signs Temperature 96.8 F 06/01/25 07:03 Pulse Rate 70 06/01/25 07:03 Respiratory Rate 18 06/01/25 07:03 Blood Pressure 159/72 06/01/25 07:03 O2 Sat by Pulse Oximetry 96 06/01/25 07:03 Pain Scale Pain Intensity 3 - Physical Exam General Appearance: no apparent distress, alert Eye Exam: PERRL/EOMI, eyes nml inspection Ears, Nose, Throat Exam: normal ENT inspection, TMs normal, pharynx normal, moist mucous membranes Neck Exam: normal inspection, non-tender, supple, full range of motion, other (There is bruising to the area under the chin. Some tenderness as well. Overlying soft tissue intact. There is swelling and tenderness over the left carotid the area of the initial injury. Patient is phonating normally. No stridor. No respiratory distress) Respiratory Exam: normal breath sounds, lungs clear, airway intact, No respiratory distress Cardiovascular Exam: regular rate/rhythm, normal heart sounds, normal peripheral pulses Gastrointestinal/Abdomen Exam: soft, normal bowel sounds, No tenderness, No mass Back Exam: normal inspection, normal range of motion, No CVA tenderness, No vertebral tenderness Extremity Exam: normal inspection, normal range of motion, pelvis stable Neurologic Exam: alert, oriented x 3, cooperative, normal mood/affect, sensation nml, No motor deficits Skin Exam: normal color, warm, dry, No rash Lymphatic Exam: No adenopathy SpO2 Interpretation: normal SpO2: 96 O2 Delivery: Room Air - Course Nursing assessment & vital signs reviewed: Yes - CT Exams Soft Tissue Neck CT Interpretation: Tele-radiologist Report (CTA neck shows no acute findings regarding carotid. However left lateral soft tissue neck swelling observed secondary to trauma. There are some degenerative changes at the cervical spine and bilateral TMJ. Atherosclerotic disease) Ordered Tests: Active Orders 24 hr Category Date Time Status Plastic Fabricator STAT Care 06/01/25 07:47 Completed IV Insertion STAT Care 06/01/25 07:47 Completed Pulse Oximetry (ED) STAT Care 06/01/25 07:[address] ANGIOGRAPHY NECK [CT] Stat Exams 06/01/25 07:48 Completed CBC W DIFF Stat Lab 06/01/25 08:00 Completed CMP Stat Lab 06/01/25 08:00 Completed Medication Summary Discontinued Medications Generic Name Dose Route Start Last Admin Trade Name Eddy PRN Reason Stop Dose Admin Sodium Chloride 1,000 mls @ 100 mls/hr 06/01/25 08:00 06/01/25 08:21 Sodium Chloride 0.9% 1000 Ml IV 07/01/25 07:59 100 mls/hr .Q10H RENEE Administration Sodium Chloride Confirm 06/01/25 08:21 Sodium Chloride 0.9% 1000 Ml Administered 06/01/25 08:22 Dose 1,000 mls @ ud .ROUTE .STK-MED ONE Lab/Rad Data: Laboratory Result Diagrams 06/01/25 08:00 06/01/25 08:00 Laboratory Results 06/01/25 06/01/25 Range/Units 08:00 08:00 WBC 5.7 (4.23-9.07) x10^3/uL RBC 4.98 (4.63-6.08) x10^6/uL Hgb 15.9 (13.7-17.5) g/dL Hct 46.0 (40.1-51.0) % MCV 92.4 H (79.0-92.2) fL MCH 31.9 (25.7-32.2) pg MCHC 34.6 (32.3-36.5) g/dL RDW 13.2 (11.6-14.4) % Plt Count 187 (163-337) x10^3/uL MPV 11.4 (9.4-12.4) fL Gran % 67.1 (34.0-67.9) % Immature Gran % (Auto) 0.7 H (0.001-0.429) % Nucleat RBC Rel Count 0.0 (0.00-0.2) % Eos # (Auto) 0.22 (0.04-0.54) x10^3/uL Immature Gran # (Auto) 0.04 H (0.001-0.031) x10^3u/L Absolute Lymphs (auto) 1.06 L (1.32-3.57) x10^3/uL Absolute Monos (auto) 0.54 (0.30-0.82) x10^3/uL Absolute Nucleated RBC 0.00 (0.00-0.012) x10^3u/L Lymphocytes % 18.5 L (21.8-53.1) % Monocytes % 9.4 (5.3-12.2) % Eosinophils % 3.8 (0.8-7.0) % Basophils % 0.5 (0.2-1.2) % Absolute Granulocytes 3.83 (1.78-5.38) x10^3/uL Basophils # 0.03 (0.01-0.08) x10^3/uL Sodium 143 (135-145) mmol/L Potassium 4.2 (3.5-5.1) mmol/L Chloride 109 H (98-107) mmol/L Carbon Dioxide 27 (22-30) mmol/L Anion Gap 10.7 (5-15) MEQ/L BUN 21 H (9-20) mg/dL Creatinine 1.32 H (0.66-1.25) mg/dL Estimated GFR 54.5 ML/MIN Glucose 115 H (74-106) mg/dL Calcium 8.9 (8.4-10.2) mg/dL Total Bilirubin 0.70 (0.2-1.3) mg/dL AST 25 (17-59) U/L ALT 32 (0-50) U/L Alkaline Phosphatase 75 (38-126) U/L Serum Total Protein 6.5 (6.3-8.2) g/dL Albumin 4.0 (3.5-5.0) g/dL - Progress Progress: improved Progress Note: 79-year-old male presents to our ED for evaluation of swelling pain and bruising to the left neck secondary to being hit by a golf ball. Physical exam reveals some tenderness and ecchymosis in the submental region. Patent airway. CTA neck ordered to assess the integrity of the carotid artery and to assess for possible hematoma. No hematoma observed. Soft tissue swelling only. No intimal flap and or injury or carotid artery trauma. Patient reassessed. Patient resting comfortably. He declined pain medication. Vital stable. No indication for further workup will discharge home. Patient voices no other complaints or concerns at this time. Portions of this note were created with voice recognition technology. There may be grammatical, spelling, punctuation or sound alike errors Complexity of problem addressed is moderate acute complicated. No critical care time. Complex of data reviewed and analyzed as moderate. Test ordered test reviewed results analyzed and correlated clinically with history and physical exam. Risk of complication and or risk of morbidity/mortality of patient management is low. Vital stable. Time spent to discharge patient is approximately 15 minutes. Plan of care established for shared decision making. No social determinants of health present to impede follow-up. Portions of this note were created with voice recognition technology. There may be grammatical, spelling, punctuation or sound alike errors 06/01/25 11:06 Counseled pt/family regarding: lab results, diagnosis, rad results - Departure Departure Disposition: Home Clinical Impression: Blunt trauma of neck, Elevated serum creatinine Condition: Stable Critical Care Time: No Referrals: [facility]OSPITAL,'[facility] [Primary Care Provider, UNKNOWN] - Follow up/PCP as directed Additional Instructions: Please follow-up with your primary care doctor within 48 hours for reevaluation. Discharge/Care Plan AZALIA COOPER was seen on 06/01/25 in the Emergency Room. The patient was counseled regarding Diagnosis,Lab results, Imaging studies, need for follow up and when to return to the Emergency Room. Prescriptions given: Discharge Note I have spoken with the patient and/or caregivers. I have explained the patient's condition, diagnosis and treatment plan based on the information available to me at this time. I have answered the patient's and/or caregiver's questions and addressed any concerns. The patient and/or caregivers have as good understanding of the patient's diagnosis, condition and treatment plan as can be expected at this point. The vital signs have been stable. The patient's condition is stable and appropriate for discharge from the emergency department. The patient will pursue further outpatient evaluation with the primary care physician or other designated or consulting physician as outlined in the discharge instructions. The patient and/or caregivers are agreeable to this plan of care and follow-up instructions have been explained in detail. The patient and/or caregivers have received these instruction. The patient/and or caregivers are aware that any significant change in condition or worsening of symptoms should prompt an immediate return to this or the closest emergency department or call 911.
[2025-06-01 08:14] LABS: BASOPHIL % 0.5 % (0.2-1.2); Basophil (Absolute #) 0.03 x10^3/uL (0.01-0.08); Eosinophil (Absolute #) 0.22 x10^3/uL (0.04-0.54); Hematocrit 46.0 % (40.1-51.0); Hemoglobin 15.9 g/dL (13.7-17.5); IMMATURE GRAN # 0.04 x10^3u/L (0.001-0.031); IMMATURE GRAN % 0.7 % (0.001-0.429); Lymphocyte (Absolute #) 1.06 x10^3/uL (1.32-3.57); Mean Corpuscular Hemoglobin 31.9 pg (25.7-32.2); Mean Corpuscular Hgb Concent. 34.6 g/dL (32.3-36.5); Monocyte (Absolute #) 0.54 x10^3/uL (0.30-0.82); NUCLEATED RBC # 0.00 x10^3u/L (0.00-0.012); NUCLEATED RBC % 0.0 % (0.00-0.2); Platelet Count 187 x10^3/uL (163-337); Red Blood Count 4.98 x10^6/uL (4.63-6.08); White Blood Count 5.7 x10^3/uL (4.23-9.07)
[2025-06-01 08:27] LABS: Calcium 8.9 mg/dL (8.4-10.2); Carbon Dioxide 27.0 mmol/L (22-30); Creatinine 1 1.32 mg/dL (0.66-1.25); EST GLOMERULAR FILTRATION RATE 54.5 ML/MIN; Glucose 115.0 mg/dL (74-106); Potassium 4.2 mmol/L (3.5-5.1); SGOT/AST 25.0 U/L (17-59); SGPT/ALT 32.0 U/L (0-50); Total Protein 6.5 g/dL (6.3-8.2)
[2025-06-01 10:06] VITALS: BP 146/55; PULSE 48; RESP 17
--- NOTE | 2025-06-01 10:31 | XRAY ---
Indication: Pain following golf ball injury 1 week ago. Conventional contrast enhanced CTA neck performed using 80 cc Isovue 370 contrast. 2D sagittal and coronal reformatted images obtained. Additional 3D reformatted images obtained using separate workstation. Comparison: None Visualized aortic arch appears normal in CTA appearance with normal branching right brachiocephalic, left common carotid, and left subclavian arteries. Great branches demonstrates very minimal calcifications without critical stenosis/obstruction. Examination right carotid circulation demonstrates minimal eccentric arteriosclerotic calcifications carotid bulb extending into origin/proximal internal carotid artery. Normal CTA appearance to remaining common carotid and external carotid arteries. Examination left carotid circulation demonstrates normal CTA appearance to the common carotid, carotid bulb, internal carotid, and external carotid arteries. Examination vertebral arteries are normal in CTA appearance with right slightly larger in caliber. Visualized soft tissues demonstrates mild left lateral neck subcutaneous soft tissue swelling at level of hyoid presumed known injury. No underlying focal solid/cystic mass, fluid collection, or pathologic cervical/supraclavicular lymphadenopathy. Parotid and submandibular glands are bilaterally symmetric. Thyroid gland enhances homogeneously. Supra and infraglottic airway widely patent. Visualized osseous structures intact with osteopenia and minimal C5-C6 degenerative disc space narrowing with endplate spurring. Incidental small inferior C3 Schmorl node. Moderate bilateral TMJ degenerative changes. Lung apices demonstrates minimal bilateral dependent atelectasis. Base of brain unremarkable. Impression: 1. Minimal arteriosclerotic disease right carotid bulb and internal carotid artery. Remaining CTA neck normal. 2. Incidental left lateral neck soft tissue swelling, osteopenia, C5-C6 degenerative disc disease, and bilateral TMJ degenerative changes.
[2025-06-01 10:46] VITALS: O2SAT 96
== END 2025-06-01 10:51 | disposition home or self-care (01) ==
LOC: ED 06:58
DX: S10.93XA Contusion of unspecified part of neck, initial encounter (principal); W21.04XA Struck by golf ball, initial encounter; R79.89 Other specified abnormal findings of blood chemistry; I10 Essential (primary) hypertension; Z79.01 Long term (current) use of anticoagulants; Z79.899 Other long term (current) drug therapy

== ENCOUNTER 2025-07-17 07:59 | Emergency (ER) | payer OTHER ==
[2025-07-17 08:22] VITALS: TEMP 97.7
--- NOTE | 2025-07-17 08:22 | ERPHSYRPT ---
- History of Present Illness Time Seen by Provider: 07/17/25 08:15 Source: patient Exam Limitations: no limitations Physician History: This is an 79-year-old white male patient who arrives with private vehicle and is a patient who receives his primary care through the [facility] system with the complaint of bilateral lower extremity swelling, left side worse than right. There has been increased swelling over the last 2-1/2 months. Patient denies history of congestive heart failure and has no chest pain no shortness of breath. He also has no history of chronic renal disease. Patient has no history of DVT or pulmonary embolus. Patient does have atrial fibrillation and is on Eliquis. He is not on any diuretics. He is a former smoker. Patient has a history of prostate cancer, sleep apnea, hypertension, gastroesophageal reflux disease and hyperlipidemia. He was seen at the [facility] clinic yesterday and they told him to come to the emergency department today, to be evaluated for possible blood clot in his legs. He has no calf pain. Method of Injury: other Occurred: other (Present and worsening over the last 2-1/2 months) Severity of Pain-Max: none Severity of Pain-Current: none Lower Extremities Pain: leg: bilateral (Bilateral lower extremities) Modifying Factors: Improves With: nothing Associated Symptoms: none Allergies/Adverse Reactions: No Known Drug Allergies Allergy (Verified 06/01/25 07:03) Home Medications: Bisacodyl [Dulcolax] 10 mg PO DAILY 08/04/17 [History] Calcium Carbonate/Vitamin D3 [Calcium 600-Vit D3 400 Tablet] 1 each PO BID 08/04/17 [History] Cyanocobalamin (Vitamin B-12) [Vitamin B12] 2,500 mcg PO DAILY 08/04/17 [History] Flecainide Acetate 100 mg PO BID 08/04/17 [History] Potassium Chloride Tab* [Klor Con] 10 meq PO DAILY 08/04/17 [History] Vitamin B Complex [Super B Complex] 1 each PO DAILY 08/04/17 [History] Apixaban [Eliquis 2.5 mg Tablet] 5 mg PO BID 04/08/24 [History] Amlodipine Besylate 5 mg PO DAILY 06/05/24 [History] Atorvastatin Calcium 40 mg PO DAILY 06/05/24 [History] PANTOPRAZOLE 40 mg Tablet [Protonix 40MG Tablet] 40 mg PO DAILY 06/05/24 [History] Vibegron [Gemtesa] 75 mg PO DAILY 04/26/25 [History] Hx Tetanus, Diphtheria Vaccination/Date Given: Yes Hx Influenza Vaccination/Date Given: Yes Hx Pneumococcal Vaccination/Date Given: Yes Travel Risk - International Travel Have you traveled outside of the country in past 3 weeks: No - Emerging Infectious Disease Are you exhibiting symptoms associated with any current EIDs: No - Review of Systems Constitutional: No Symptoms Eyes: No Symptoms Ears, Nose, & Throat: No Symptoms Respiratory: No Symptoms Cardiac: No Symptoms Abdominal/Gastrointestinal: No Symptoms Genitourinary Symptoms: No Symptoms Musculoskeletal: No Symptoms Skin: No Symptoms Neurological: No Symptoms Psychological: No Symptoms Endocrine: No Symptoms Hematologic/Lymphatic: No Symptoms Immunological/Allergic: No Symptoms All Other Systems: Reviewed and Negative - Past Medical History Pertinent Past Medical History: Yes Neurological History: No Pertinent History ENT History: No Pertinent History Cardiac History: Arrhythmia, Hypertension Respiratory History: Sleep Apnea Endocrine Medical History: No Pertinent History Musculoskeletal History: Arthritis GI Medical History: GERD, Hemorrhoids Psycho-Social History: No Pertinent History Male Reproductive Disorders: Prostate Cancer Other Medical History: CDIFF - Past Surgical History Past Surgical History: Yes Neuro Surgical History: No Pertinent History Cardiac: No Pertinent History Respiratory: No Pertinent History Gastrointestinal: Appendectomy, Hernia Repair Genitourinary: Other Musculoskeletal: No Pertinent History Male Surgical History: Prostate Surgery, Other Other Surgical History: bladder sling, artificial spincter in scrotum, biopsy on right leg due to shrinking lef muscle. - Social History Smoking Status: Former smoker How long have you smoked: 35 years Exposure to second hand smoke: No Drug Use: none - Social Determinants of Health Will the patient participate in the screening: Yes Do you worry about a steady place to live?: No In the past 12 months,have you had to go without utilities?: No Transportation Issues: No Has anyone in your support network made you feel unsafe?: No Have you or anyone in your house had to go w/o enough food: No - Nursing Vital Signs Nursing Vital Signs: Initial Vital Signs Temperature 97.7 F 07/17/25 07:59 Pulse Rate 71 07/17/25 07:59 Respiratory Rate 18 07/17/25 07:59 Blood Pressure 159/80 07/17/25 07:59 O2 Sat by Pulse Oximetry 95 07/17/25 07:59 Pain Scale Pain Intensity 0 - Physical Exam General Appearance: no apparent distress, alert Eyes, Ears, Nose, Throat Exam: normal ENT inspection, moist mucous membranes Neck Exam: normal inspection, non-tender, supple, full range of motion Cardiovascular/Respiratory Exam: chest non-tender, no respiratory distress Gastrointestinal/Abdominal Exam: non-tender Back Exam: normal inspection, normal range of motion, No CVA tenderness, No vertebral tenderness Hips Exam: bilateral: non-tender, normal inspection, normal range of motion, no evidence of injury Knees Exam: bilateral knee: non-tender, normal inspection, normal range of motion, no evidence of injury Ankle Exam: bilateral ankle: non-tender, normal range of motion, no evidence of injury, swelling Foot Exam: bilateral foot: non-tender, normal inspection, normal range of motion, no evidence of injury Neuro/Tendon Exam: normal sensation, normal motor functions, normal tendon functions, no evidence tendon injury Mental Status Exam: alert, oriented x 3, cooperative Skin Exam: normal color, warm, dry SpO2 Interpretation: normal O2 Delivery: Room Air - Course Nursing assessment & vital signs reviewed: Yes Ordered Tests: Active Orders 24 hr Category Date Time Status VENOUS BILATERAL EXTREMITY [US] Stat Exams 07/17/25 08:25 Taken BMP Stat Lab 07/17/25 08:25 Completed BNPII [NT PRO BNPII] Stat Lab 07/17/25 08:25 Completed CBC W DIFF Stat Lab 07/17/25 08:25 Completed Lab/Rad Data: Laboratory Result Diagrams 07/17/25 08:25 07/17/25 08:25 Laboratory Results 07/17/25 07/17/25 07/17/25 Range/Units 08:25 08:25 08:25 WBC 4.8 (4.23-9.07) x10^3/uL RBC 5.14 (4.63-6.08) x10^6/uL Hgb 16.5 (13.7-17.5) g/dL Hct 47.8 (40.1-51.0) % MCV 93.0 H (79.0-92.2) fL MCH 32.1 (25.7-32.2) pg MCHC 34.5 (32.3-36.5) g/dL RDW 13.1 (11.6-14.4) % Plt Count 190 (163-337) x10^3/uL MPV 11.3 (9.4-12.4) fL Gran % 60.0 (34.0-67.9) % Immature Gran % (Auto) 0.8 H (0.001-0.429) % Nucleat RBC Rel Count 0.0 (0.00-0.2) % Eos # (Auto) 0.21 (0.04-0.54) x10^3/uL Immature Gran # (Auto) 0.04 H (0.001-0.031) x10^3u/L Absolute Lymphs (auto) 1.12 L (1.32-3.57) x10^3/uL Absolute Monos (auto) 0.52 (0.30-0.82) x10^3/uL Absolute Nucleated RBC 0.00 (0.00-0.012) x10^3u/L Lymphocytes % 23.2 (21.8-53.1) % Monocytes % 10.8 (5.3-12.2) % Eosinophils % 4.4 (0.8-7.0) % Basophils % 0.8 (0.2-1.2) % Absolute Granulocytes 2.89 (1.78-5.38) x10^3/uL Basophils # 0.04 (0.01-0.08) x10^3/uL Sodium 141 (135-145) mmol/L Potassium 4.4 (3.5-5.1) mmol/L Chloride 108 H (98-107) mmol/L Carbon Dioxide 25 (22-30) mmol/L Anion Gap 13.4 (5-15) MEQ/L BUN 22 H (9-20) mg/dL Creatinine 1.36 H (0.66-1.25) mg/dL Estimated GFR 52.6 ML/MIN Glucose 108 H (74-106) mg/dL Calcium 9.0 (8.4-10.2) mg/dL NT-Pro-B Natriuret Pep 68.2 (<300) pg/mL - Progress Progress: unchanged Progress Note: 07/17/25 08:22 My medical decision making and the assignment of moderate complexity of this patient's medical issue today is based on review of the patient's past medical history, reviewed patient's medication list, review the patient's drug allergy list, history presence of physical findings on examination. The workup in this patient includes placement of intravenous line, CBC, BNP, BMP, and venous Doppler bilateral lower extremities. Differential diagnosis includes but is not limited to swelling BLE secondary to DVT, swelling BLE secondary to renal disease, swelling BLE secondary to CHF 07/17/25 09:50 I interpreted the patient's laboratory data results. Based on laboratory data results there is evidence of mild renal disease that has been worsening over the last year with compared to prior values. This may be contributing to the patient's edema. There are no acute or emergent medical issues. Venous Doppler ultrasound bilateral lower extremities was interpreted by the component assembler supervisor/technologist and they reported to me the BLE venous Doppler ultrasound is negative for DVT. Counseled pt/family regarding: lab results, diagnosis, need for follow-up, rad results Medical Desision Making - Diagnostic Testing Diagnostic test were ordered, analyzed, and reviewed by me: Yes Radiological Interpretation: Reviewed by me, Teleradiologist Report - Risk of complications Low Risk: Low risk of morbidity from additional dx testing or treatment - Departure Departure Disposition: Home Clinical Impression: Bilateral lower extremity edema Condition: Stable Critical Care Time: No Referrals: [facility] [Primary Care Provider, UNKNOWN] - Follow up/PCP as directed Additional Instructions: Take your medications as prescribed. Call your [facility] physician to make arrangements for follow-up appointment to be seen in the next 3 to 5 days to determine if diuretic therapy is appropriate for you.
[2025-07-17 08:39] LABS: BASOPHIL % 0.8 % (0.2-1.2); Basophil (Absolute #) 0.04 x10^3/uL (0.01-0.08); Eosinophil (Absolute #) 0.21 x10^3/uL (0.04-0.54); Hematocrit 47.8 % (40.1-51.0); Hemoglobin 16.5 g/dL (13.7-17.5); IMMATURE GRAN # 0.04 x10^3u/L (0.001-0.031); IMMATURE GRAN % 0.8 % (0.001-0.429); Lymphocyte (Absolute #) 1.12 x10^3/uL (1.32-3.57); Mean Corpuscular Hemoglobin 32.1 pg (25.7-32.2); Mean Corpuscular Hgb Concent. 34.5 g/dL (32.3-36.5); Monocyte (Absolute #) 0.52 x10^3/uL (0.30-0.82); NUCLEATED RBC # 0.00 x10^3u/L (0.00-0.012); NUCLEATED RBC % 0.0 % (0.00-0.2); Platelet Count 190 x10^3/uL (163-337); Red Blood Count 5.14 x10^6/uL (4.63-6.08); White Blood Count 4.8 x10^3/uL (4.23-9.07)
[2025-07-17 08:55] LABS: Calcium 9.0 mg/dL (8.4-10.2); Carbon Dioxide 25.0 mmol/L (22-30); Creatinine 1 1.36 mg/dL (0.66-1.25); EST GLOMERULAR FILTRATION RATE 52.6 ML/MIN; Glucose 108.0 mg/dL (74-106); Potassium 4.4 mmol/L (3.5-5.1)
[2025-07-17 09:59] VITALS: O2SAT 96
--- NOTE | 2025-07-17 10:01 | XRAY ---
Indication: Bilateral leg swelling. Two-dimensional sonogram and color Doppler imaging major venous vessels left and right leg performed. Comparison: None No thrombus seen in the examined deep venous vessels left and right leg including greater saphenous vein. Veins demonstrate normal compressibility. Venous waveforms are normal with and without augmentation. Impression: Left and right leg negative for DVT.
[2025-07-17 10:13] VITALS: BP 161/77; PULSE 78; RESP 16
== END 2025-07-17 10:13 | disposition home or self-care (01) ==
LOC: ED 07:59
DX: R60.0 Localized edema (principal); I10 Essential (primary) hypertension; Z79.01 Long term (current) use of anticoagulants; Z79.899 Other long term (current) drug therapy